=== PATIENT | male | born 1955 | race Caucasian/White ===

== ENCOUNTER 2020-01-23 22:57 | Inpatient (IN) | payer MEDICARE, BC ==
[~2020-01-23 22:57] MED LIST: Iopamidol-370 76% 500 ML 1 ML ONE
[2020-01-23 23:22] LABS: Hemoglobin 16.9 g/dL (14.0-18.0); Mean Corpuscular HGB CONC 34.7 g/dL (32.0-36.0); Mean Corpuscular Hemoglobin 32.5 pg (27.0-31.0); Mean Corpuscular Volume 93.7 fL (78.0-98.0); Platelet Count 317 thou/uL (130-400); RBC Distribution Width 11.5 % (11.5-14.5)
[2020-01-23] MEDS ORDERED: Morphine 4 MG/ML VIAL ONE (23:39)
[2020-01-23] MEDS ORDERED: Ondansetron PF 4 MG/2 ML Vial ONE (23:39)
[2020-01-23 23:41] LABS: ALT (SGPT) 48 U/L (8-55); AST (SGOT) 29 U/L (5-34); Albumin 4.9 g/dL (3.4-4.8); Alkaline Phosphatase 87 U/L (40-110); Anion Gap 13 mmol/L (10-20); BUN (Urea Nitrogen) 32 mg/dL (8.4-25.7); Bilirubin, Total 0.6 mg/dL (0.2-1.2); Calc. Creatinine Clearance 0 mL/min (70-130); Calcium 10.2 mg/dL (7.8-10.44); Carbon Dioxide 29 mmol/L (23-31); Chloride 98 mmol/L (98-107); Estimated GFR-MDRD 59; Globulin 2.8 g/dL (2.4-3.5); Glucose 256 mg/dL (80-115); Lipase 13 U/L (8-78); Potassium 4.2 mmol/L (3.5-5.1); Protein, Total 7.7 g/dL (5.8-8.1); Sodium 136 mmol/L (136-145)
[2020-01-23 23:43] LABS: Band 1 % (5-11); Lymphocytes 6 % (21-51); MDiff Complete? YES; Monocytes 4 % (0-10); Neutrophil 89 % (42-75); Platelet Morphology Comment Appears Adequate; RBC Morphology Normal
[2020-01-24] MEDS ORDERED: Morphine 4 MG/ML VIAL ONE (01:20)
[2020-01-24] MEDS ORDERED: Sodium Chloride 0.9% (PF) 10 ML VIAL FS PRN (01:51)
[2020-01-24] MEDS ORDERED: Ketorolac Tromethamine 30 MG/ML VIAL IVP PRN ×3 (01:52→20:02)
[2020-01-24] MEDS ORDERED: Morphine 4 MG/ML VIAL SLOW IVP PRN ×2 (01:52→06:56)
[2020-01-24] MEDS ORDERED: Lactated Ringer's 1,000 ML IV SCH (02:00)
[2020-01-24 02:04] VITALS: BMI 32.4
[2020-01-24 02:47] LABS: Lactic Acid 1.9 mmol/L (0.5-2.2)
[2020-01-24] MEDS ORDERED: Ondansetron PF 4 MG/2 ML Vial IVP PRN (06:56)
[2020-01-24] MEDS ORDERED: hydrALAZINE 20 MG/ML VIAL SLOW IVP PRN (06:56)
[2020-01-24] MEDS ORDERED: Dextrose 5% in Water 1,000 ML IV PRN (06:56)
[2020-01-24] MEDS ORDERED: Morphine 2 MG/ML SYRINGE SLOW IVP PRN (06:56)
[2020-01-24] MEDS ORDERED: Dextrose 50% Abboject 50 ML SYRINGE SLOW IVP PRN (06:56)
--- NOTE | 2020-01-24 07:32 | CT ---
CT ABDOMEN AND PELVIS WITH CONTRAST: Date: 01/23/2020 INDICATION: Colostomy. Abdominal pain. Question bowel obstruction. There are no comparison studies. FINDINGS: Lung bases clear. Liver shows low attenuation suggesting fatty infiltration. There is an area of increased attenuation seen near the chepe hepatis which may represent focal fatty sparing. The spleen is unremarkable. Pancreas unremarkable. There is at least one peripherally calcified gallstone seen in the gallbladder lumen. The gallbladder is mildly contracted. This gallstone measures approximately 2.6 cm. No evidence of biliary duct dilatation. Adrenal glands normal. A right renal cystic lesion seen posterior medial cortex measures 3.0 cm. There is another smaller cy stic lesion inferior right kidney. No hydronephrosis. No urinary tract calculus. Urinary bladder unre markable. Patient appears to be post colectomy. There is an ileostomy in the right mid abdomen. There is associ ated parastomal hernia with mesenteric fat herniated through the anterior abdominal wall defect into the subcutaneous tissues adjacent to the ostomy. There are several dilated loops of small bowel which show fecalization indicating small bowel obstructive process in the mid abdomen. This most likely is the result of the parastomal hernia. IMPRESSION: There is evidence of a relatively high grade small bowel obstruction, probably the result of a parast omal hernia. Recommend surgical consultation. POS: [facility]
[2020-01-24] MEDS: Lactated Ringer's 1,000 ML IV SCH ×3 (08:17→22:26)
[2020-01-24] MEDS ORDERED: Enoxaparin Sodium 30 MG/0.3 ML SYRINGE SC SCH (09:00)
[2020-01-24] MEDS ORDERED: Pantoprazole 40 MG VIAL IVP SCH (09:00)
--- NOTE | 2020-01-24 09:03 | RAD ---
ABDOMEN 2 VIEWS WITH 1 VIEW CHEST: Date: 01/24/2020 HISTORY: Small bowel obstruction. COMPARISON: Radiograph from prior day. FINDINGS: Enteric tube is in place with tip at the gastric body. There continue to be dilated loops of bowel in the left upper quadrant of the abdomen. There is fecalized dilated bowel in the lower abdomen bilaterally. Large cholelithiasis. No free air under the hemidiaphragms is appreciated. IMPRESSION: Continued findings of small bowel obstruction. POS: [facility]
[2020-01-24] MEDS ORDERED: Meropenem 2 GM, Admixture Fee 1 EACH in Sodium Chloride 0.9% 100 ML IVPB SCH (09:30)
--- NOTE | 2020-01-24 10:51 | HP ---
HISTORY OF PRESENT ILLNESS: MR. Navarro is a 64-year-old male patient, single, works at [employer] in maintenance, presents to the emergency room last night with a 1-day history of ileostomy, lack of output. He complains of abdominal bloating and nausea and vomiting. Last night at 23:12, he underwent a CAT scan of the abdomen and pelvis revealing a gallstone and high-grade bowel obstruction thought to be parastomal hernia consequence. NG tube was placed, giving him some relief, although not alleviating his discomfort. Repeat abdominal x-rays obtained this morning revealed fecalization of small bowel and large gallstone and dilated loops of small bowel. The patient reports that he underwent a total abdominal colectomy for ulcerative colitis in . Since that time, he has had two operations for bowel obstruction. He has had bilateral inguinal hernia repairs. The patient reports he has had his operations at this facility, although that is not evident on current registration information. On admission, the patient's white count was 23,000, hemoglobin 16. Basic metabolic profile essentially normal except for mildly elevated BUN of 32, creatinine 1.22. Liver function tests were normal. ALLERGIES: NONE. SOCIAL HISTORY: Tobacco, none. Alcohol, none. MEDICATIONS: At home he takes 1. Lipitor 20 mg a day. 2. Amlodipine 10 mg a day. 3. Metformin 1000 mg p.o. b.i.d. 4. Glipizide 5 mg a.m. 5. Lisinopril 10 mg daily. 6. Januvia 100 mg daily. PAST SURGICAL HISTORY: As noted above, bilateral inguinal hernia repairs with mesh, colectomy for ulcerative colitis, repeat operations for bowel obstructions through a midline incision. PAST MEDICAL HISTORY: Diabetes mellitus, hypertension. REVIEW OF SYSTEMS: Ten-point noncontributory. SOCIAL HISTORY: As noted above. The patient is single. 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 FAMILY HISTORY: No significant medical problems. REVIEW OF SYSTEMS: Noncontributory. PHYSICAL EXAMINATION: VITAL SIGNS: 6 feet 1 inch, 246 pounds, 32 BMI, 98.6, 88, 160/83. HEAD, EARS, EYES, NOSE, AND THROAT: Unremarkable. LUNGS: Clear to auscultation. CARDIAC: Regular rate and rhythm. No murmur or gallop. ABDOMEN: Distended tympanitic, mildly tender. Midline incision well healed without evident incisional hernia. Ileostomy right lower quadrant with some fullness around the ostomy, but no appreciable mass. EXTREMITIES: Unremarkable. No ankle edema. NEUROLOGICAL: Intact. No lymphadenopathy neck, axilla, groins. LABORATORY DATA: As noted. ASSESSMENT/PLAN: 1. Small-bowel obstruction secondary to , possible related to a parastomal hernia, although not appreciated on exam. We will plan laparoscopy. Most likely, he will need a laparotomy. He understands risks of infection, bleeding, reoperation, and consents. 2. Diabetes mellitus. 3. Hypertension. 4. History of ulcerative colitis and total abdominal colectomy. Job ID: [id number]
[2020-01-24] MEDS: HumaLOG 300 UNITS/3 ML VIAL SC PRN (12:37)
[2020-01-24] MEDS ORDERED: Vecuronium 10 MG VIAL ONE (12:42)
[2020-01-24] MEDS ORDERED: Metoclopramide HCl 10 MG/2 ML VIAL ONE (12:42)
[2020-01-24] MEDS ORDERED: diphenhydrAMINE 50 MG/ML VIAL ONE (12:42)
[2020-01-24] MEDS ORDERED: Succinylcholine Chloride 20 MG/ML 10 ml SYRINGE FS ONE (12:42)
[2020-01-24] MEDS ORDERED: PROPOFOL 200 MG/20 ML VIAL ONE (12:42)
[2020-01-24] MEDS ORDERED: Lidocaine 1% PF 5 ML VIAL ONE (12:42)
[2020-01-24] MEDS ORDERED: Bupivacaine HCl 0.5%/Epinephrine 1:200,000/PF 30 ml Vial ONE (12:42)
[2020-01-24] MEDS ORDERED: Glycopyrrolate 0.2 MG/ML 5 ML SYRINGE ONE (12:42)
[2020-01-24] MEDS ORDERED: Rocuronium Bromide 10 MG/ML (10ML VIAL) ONE (12:42)
[2020-01-24] MEDS ORDERED: Ondansetron PF 4 MG/2 ML Vial ONE (12:42)
[2020-01-24 13:34] LABS: #Lymphocytes 0.8 thou/uL (1.20-3.40); #Monocytes 1.6 thou/uL (0.11-0.59); #Neutrophils 10.6 thou/uL (1.40-6.50); %Basophils 0.2 % (0.0-1.0); %Eosinophils 0.3 % (0.0-10.0); %Neutrophils 81.5 % (42.0-75.0); Hemoglobin 15.8 g/dL (14.0-18.0); Mean Corpuscular HGB CONC 33.6 g/dL (32.0-36.0); Mean Corpuscular Hemoglobin 31.8 pg (27.0-31.0); Mean Corpuscular Volume 94.8 fL (78.0-98.0); Platelet Count 276 thou/uL (130-400); RBC Distribution Width 11.6 % (11.5-14.5); Red Blood Cell (RBC) Count 4.97 mill/uL (4.70-6.10)
[2020-01-24 13:53] LABS: Anion Gap 13 mmol/L (10-20); BUN (Urea Nitrogen) 30 mg/dL (8.4-25.7); Calc. Creatinine Clearance 119 mL/min (70-130); Carbon Dioxide 28 mmol/L (23-31); Chloride 101 mmol/L (98-107); Estimated GFR-MDRD 78; Glucose 214 mg/dL (80-115); Potassium 4.2 mmol/L (3.5-5.1); Sodium 138 mmol/L (136-145)
[2020-01-24] MEDS ORDERED: Midazolam HCl 2 mg/2 ml Vial ONE (14:44)
[2020-01-24] MEDS ORDERED: Fentanyl 100 MCG/2 ML VIAL ONE ×3 (14:44→20:03)
[2020-01-24] MEDS ORDERED: Lidocaine 1% w/Epinephrine 1:100K 20 ML VIAL ONE (14:54)
[2020-01-24] MEDS ORDERED: Bupivacaine PF 0.5% 30 ML VIAL ONE (14:54)
--- NOTE | 2020-01-24 15:58 | EKG ---
Test Reason : PREOP Blood Pressure : / mmHG Vent. Rate : 101 BPM Atrial Rate : 101 BPM P-R Int : 136 ms QRS Dur : 082 ms QT Int : 358 ms P-R-T Axes : 065 028 040 degrees QTc Int : 464 ms Sinus tachycardia Otherwise normal ECG When compared with ECG of 21-JUN-2017 04:43, QT has shortened Confirmed by MIRIAM DENNIS, DR. Young ([id number]) on 01/24/2020 3:57:49 PM Referred By: ISAEL Confirmed By:DR. Hector PINEDA MD
[2020-01-24] MEDS ORDERED: HYDROmorphone 2 MG/ML VIAL ONE (17:44)
[2020-01-24] MEDS ORDERED: SUGAMMADEX SODIUM 500 MG/5 ML VIAL ONE (19:13)
[2020-01-24] MEDS ORDERED: Promethazine HCl 25 MG/ML VIAL IM PRN (19:37)
[2020-01-24] MEDS ORDERED: Promethazine HCl 25 MG/ML VIAL SLOW IVP PRN (19:37)
[2020-01-24] MEDS ORDERED: Ondansetron HCl/PF 4 MG/2 ML Vial IVP PRN ×2 (19:37→20:02)
[2020-01-24] MEDS ORDERED: HYDROmorphone 2 MG/ML VIAL IVPB PRN (20:02)
[2020-01-24] MEDS ORDERED: Ketorolac Tromethamine 30 MG/ML VIAL ONE (20:03)
[2020-01-24] MEDS ORDERED: hydrALAZINE 20 MG/ML VIAL ONE (20:26)
--- NOTE | 2020-01-24 20:26 | OP ---
DATE OF PROCEDURE: 01/24/2020 PREOPERATIVE DIAGNOSES: History of colectomy for ulcerative colitis with ileostomy and two prior operations for bowel obstruction, now with a small-bowel obstruction, obesity, cholelithiasis. POSTOPERATIVE DIAGNOSES: History of colectomy for ulcerative colitis with ileostomy and two prior operations for bowel obstruction, now with a small-bowel obstruction, obesity, cholelithiasis. PROCEDURES: Exploratory laparotomy, extensive adhesiolysis for 2 hours. No enterotomies. Cholecystectomy, large gallstone. ANESTHESIA: General. ESTIMATED BLOOD LOSS: 100 mL. BLOOD TRANSFUSION: None. FINDINGS: The patient was noted to have extensive adhesions to the abdominal wall interloop. Prolonged adhesiolysis was performed. Several serosal tears reinforced with silk sutures. There was a very large gallstone. A new NG tube was placed and palpated in proper position. Seprafilm was placed between the viscera and abdominal wall into the pelvis. DESCRIPTION OF PROCEDURE: The patient was taken to the operating room, where under general anesthesia, abdomen was prepared with ChloraPrep and ostomy prepared with Betadine and draped in routine fashion. OpSite was placed over the ileostomy in the right lower quadrant. Incision was made through the old scar. On entering the abdominal cavity sharply, there were extensive adhesions, easily taken down with sharp dissection, freeing the small bowel adhesions from the anterior abdominal wall. There was a markedly dilated proximal bowel and decompressed distal bowel. Proximal small bowel was thickened, hypertrophied, indicative of chronic obstruction. Once the adhesions were all taken down from the pelvis and throughout the abdominal cavity and the obstructive process resolved. Small bowel was carefully was inspected from the ligament of Treitz to the ileostomy, ran 4 times. Serosal tears were reinforced with interrupted Lembert suture of 3-0 silk. Good hemostasis was noted. Sponge and needle counts were correct. Attention was then turned to the gallbladder, where he had a large gallstone appreciated on the CAT scan. Future cholecystectomy would require open operation. Thus, cholecystectomy was undertaken. A Bookwalter retractor was used to expose the gallbladder, grasped, dissected, and the gallbladder was taken down retrograde, freeing the attachments to the liver with the cautery. Cystic artery and duct were dissected free. Critical view was obtained. Cystic artery and duct were doubly clipped and divided, and gallbladder was submitted to Pathology. Good hemostasis was obtained with cautery. Hemostasis was ensured. Abdominal cavity was irrigated. Irrigant was evacuated. Small bowel contents were reduced in the abdominal cavity. New NG tube was placed and palpated in good position. Seprafilm was placed in the pelvis and between the viscera and abdominal wall. There was a very short leaflet of the omentum superiorly. Midline fascia was closed with continuous suture of #1 PDS. Skin and subcutaneous tissues were irrigated. Skin was approximated with love. The patient tolerated the procedure well. Job ID: [id number]
[2020-01-24] MEDS ORDERED: Prevnar 13-Val Conj/PF 0.5 ML SYRINGE IM ONE (21:00)
[2020-01-24] MEDS: Enoxaparin Sodium 40 MG/0.4 ML SYRINGE SC SCH (21:35)
[2020-01-25] MEDS: HumaLOG 300 UNITS/3 ML VIAL SC PRN ×2 (00:25→05:43)
[2020-01-25] MEDS: Lactated Ringer's 1,000 ML IV SCH ×4 (00:28→14:44)
[2020-01-25] MEDS: Ketorolac Tromethamine 30 MG/ML VIAL IVP PRN ×2 (05:43→20:42)
[2020-01-25 06:43] LABS: Band 27 % (5-11); Lymphocytes 16 % (21-51); MDiff Complete? YES; Mean Corpuscular HGB CONC 33.4 g/dL (32.0-36.0); Mean Corpuscular Hemoglobin 32.1 pg (27.0-31.0); Mean Platelet Volume 7.1 fL (7.4-10.4); Monocytes 11 % (0-10); Neutrophil 46 % (42-75); Platelet Count 275 thou/uL (130-400); Platelet Morphology Comment Appears Adequate; RBC Distribution Width 11.7 % (11.5-14.5); Red Blood Cell (RBC) Count 4.98 mill/uL (4.70-6.10); White Blood Cell (WBC) Count 10.2 thou/uL (4.8-10.8)
[2020-01-25 06:49] LABS: ALT (SGPT) 56 U/L (8-55); AST (SGOT) 41 U/L (5-34); Albumin 3.8 g/dL (3.4-4.8); Alkaline Phosphatase 69 U/L (40-110); Bilirubin, Direct 0.4 mg/dL (0.1-0.3); Bilirubin, Total 0.9 mg/dL (0.2-1.2); Protein, Total 6.2 g/dL (5.8-8.1)
[2020-01-25 06:50] LABS: Anion Gap 15 mmol/L (10-20); BUN (Urea Nitrogen) 28 mg/dL (8.4-25.7); Calc. Creatinine Clearance 117 mL/min (70-130); Calcium 8.6 mg/dL (7.8-10.44); Carbon Dioxide 22 mmol/L (23-31); Chloride 104 mmol/L (98-107); Estimated GFR-MDRD 77; Glucose 224 mg/dL (80-115); Potassium 4.5 mmol/L (3.5-5.1); Sodium 136 mmol/L (136-145)
--- NOTE | 2020-01-25 12:03 | PRG ---
DATE OF SERVICE: 01/25/2020 SUBJECTIVE: Ac Navarro is doing well today. His pain is well controlled. He is walked once. NG tube is present and has put out 510 mL postoperatively. Urine output is good. Hemoglobin 16 and white count 10. Basic metabolic profile normal. Accu-Cheks are 224 to 238. OBJECTIVE: LUNGS: Clear to auscultation. CARDIAC: Regular rate and rhythm without murmur or gallop. ABDOMEN: Soft. Minimal bowel sounds. Slightly distended and tympanitic. There is stool in his ostomy bag. EXTREMITIES: Unremarkable. ASSESSMENT AND PLAN: The patient is doing well. Continue Nation catheter today. NG tube. Sips and chips only. I encourage ambulation and up in a chair. He is up in a chair today as I had seen him. Would remove his Nation catheter tomorrow and his abdominal dressings and continue his NG tube pending day-to-day assessment and clinical progress. Job ID: [id number]
[2020-01-25] MEDS ORDERED: Cepastat Lozenges 1 LOZ PO PRN (14:00)
[2020-01-25] MEDS: Enoxaparin Sodium 40 MG/0.4 ML SYRINGE SC SCH (20:35)
[2020-01-26] MEDS: Lactated Ringer's 1,000 ML IV SCH ×3 (03:25→20:37)
--- NOTE | 2020-01-26 15:35 | PRG ---
DATE OF SERVICE: 01/26/2020 SUBJECTIVE: Ac Navarro is doing well today. He is 2 days status post more than 2-hour adhesiolysis for bowel obstruction. His ileostomy has some output. His NG tube is 500 mL in the last 24 hours, although the nurse tells me that . His abdomen is still distended and tympanitic. OBJECTIVE: LUNGS: Clear to auscultation. CARDIAC: Regular rate and rhythm without murmur or gallop. ABDOMEN: Soft, distended, tympanitic. Occasional bowel sounds. Ileostomy healthy. ASSESSMENT AND PLAN: Postoperative ileus as expected after such a long prolonged adhesiolysis. No labs today as they were normal yesterday. Accu-Cheks are 150 to 160. Overall, the patient is doing well. I have encouraged the activity level. We will continue NG tube for now, hopefully tomorrow we can remove it. We will see how his GI function looks and wait for his abdomen to diminish in size. Job ID: [id number]
[2020-01-26] MEDS ORDERED: Chloraseptic Spray 180 ml Bottle PO PRN (18:29)
[2020-01-26] MEDS: Enoxaparin Sodium 40 MG/0.4 ML SYRINGE SC SCH (20:38)
[2020-01-27] MEDS: Lactated Ringer's 1,000 ML IV SCH ×3 (05:25→20:04)
--- NOTE | 2020-01-27 16:24 | PRG ---
DATE OF SERVICE: 01/27/2020 SUBJECTIVE: Ac Navarro is doing well today. He has put out stool out of his ileostomy. OBJECTIVE: VITAL SIGNS: Temperature 98.9 degrees, respiratory rate 18, heart rate 98, and blood pressure 153/92. He is urinating. Urine output is good. Ileostomy output NG tube, he has had 1025 up until 7 this morning, he has only had 300 out today. His nurse states he is not taking as much fluids orally as he was yesterday. LUNGS: Clear to auscultation. No wheezing. CARDIAC: Regular rate and rhythm without murmur or gallop. ABDOMEN: Soft. Diminished bowel sounds were present. Ileostomy site looks good. JA suction dressing over wound. Abdomen is slightly distended, tympanitic, but nontender. ASSESSMENT AND PLAN: 1025 NG tube output, although diminished today. We will clamp his NG tube for trial to see how he does. He is having ileostomy output. Can use sips and chips for now. Report NG tube residual at 9 o'clock tonight and call me. Job ID: [id number]
[2020-01-27] MEDS: Enoxaparin Sodium 40 MG/0.4 ML SYRINGE SC SCH (20:04)
[2020-01-28] MEDS: HumaLOG 300 UNITS/3 ML VIAL SC PRN (06:12)
[2020-01-28] MEDS: Lactated Ringer's 1,000 ML IV SCH ×3 (06:13→12:29)
--- NOTE | 2020-01-28 11:27 | PRG ---
DATE OF SERVICE: 01/28/2020 SUBJECTIVE: Ac Navarro is doing well today. We checked his NG tube residual last night after 7 hours of clamp and it was 300 mL, it was left in place. This morning, he has had a total of 24 hours, 800 mL. He reports his abdomen is not as bloated. He has passed a small amount of flatus. He has not had a bowel movement. OBJECTIVE: LUNGS: Clear to auscultation. CARDIAC: Regular rate and rhythm without murmur or gallop. ABDOMEN: Soft, non-tympanitic, less distended. There is some stool in the ileostomy bag. EXTREMITIES: Unremarkable. ASSESSMENT AND PLAN: Ileus as expected after prolonged adhesiolysis. He is postoperative day #4 prolonged adhesiolysis and cholecystectomy. Remove his NG tube. Continue sips and chips for now. Await better GI function. Job ID: [id number]
[2020-01-28] MEDS: Enoxaparin Sodium 40 MG/0.4 ML SYRINGE SC SCH (20:14)
[2020-01-29] MEDS: Lactated Ringer's 1,000 ML IV SCH (01:09)
[2020-01-29 04:55] LABS: #Eosinphils 0.4 thou/uL (0.0-0.7); #Lymphocytes 1.4 thou/uL (1.20-3.40); #Monocytes 1.2 thou/uL (0.11-0.59); #Neutrophils 6.7 thou/uL (1.40-6.50); %Basophils 0.2 % (0.0-1.0); %Eosinophils 4.1 % (0.0-10.0); %Lymphocytes 14.5 % (21.0-51.0); %Monocytes 12.5 % (0.0-10.0); %Neutrophils 68.8 % (42.0-75.0); Hemoglobin 15.1 g/dL (14.0-18.0); Mean Corpuscular HGB CONC 32.8 g/dL (32.0-36.0); Mean Corpuscular Volume 94.3 fL (78.0-98.0); Mean Platelet Volume 6.8 fL (7.4-10.4); Platelet Count 281 thou/uL (130-400); RBC Distribution Width 11.1 % (11.5-14.5); Red Blood Cell (RBC) Count 4.88 mill/uL (4.70-6.10); White Blood Cell (WBC) Count 9.7 thou/uL (4.8-10.8)
[2020-01-29 05:19] LABS: Anion Gap 15 mmol/L (10-20); BUN (Urea Nitrogen) 14 mg/dL (8.4-25.7); Calc. Creatinine Clearance 174 mL/min (70-130); Calcium 8.4 mg/dL (7.8-10.44); Carbon Dioxide 24 mmol/L (23-31); Chloride 101 mmol/L (98-107); Estimated GFR-MDRD Greater than 90; Glucose 136 mg/dL (80-115); Magnesium 1.9 mg/dL (1.6-2.6); Potassium 3.5 mmol/L (3.5-5.1); Sodium 136 mmol/L (136-145)
[2020-01-29] MEDS ORDERED: Lactated Ringer's 1,000 ML IV SCH (11:59)
--- NOTE | 2020-01-29 12:04 | PRG ---
DATE OF SERVICE: 01/29/2020 SUBJECTIVE: Mr. Navarro is doing well today. He tolerated his NG tube out last night. He is thirsty. He reports passing some flatus and having a bowel movement. OBJECTIVE: VITAL SIGNS: Temperature 98.7 degrees, heart rate 92, and blood pressure 135/75. LUNGS: Clear to auscultation. CARDIAC: Regular rate and rhythm without murmur or gallop. ABDOMEN: Soft. Occasional bowel sounds. Less tympany than yesterday, although mildly tympanitic. Abdominal wound looks good. EXTREMITIES: Unremarkable. LABORATORY DATA: White count 9 and hemoglobin 15.1. Basic metabolic profile is unremarkable. Potassium 3.5 and magnesium 1.9. ASSESSMENT AND PLAN: Doing well after extensive adhesiolysis, postoperative day #5. We will advance to clear liquids, ask him to avoid carbonated beverages and to consume liquids slowly and increase ambulation. Job ID: [id number]
[2020-01-29] MEDS: Enoxaparin Sodium 40 MG/0.4 ML SYRINGE SC SCH (20:05)
[2020-01-30] MEDS: HumaLOG 300 UNITS/3 ML VIAL SC PRN ×2 (05:58→12:12)
[2020-01-30] MEDS ORDERED: Lisinopril 10 MG TAB PO SCH (09:00)
[2020-01-30] MEDS ORDERED: Amlodipine 10 MG TAB PO SCH (09:00)
[2020-01-30] MEDS ORDERED: Acetaminophen 500 MG TAB PO PRN (10:14)
[2020-01-30] MEDS ORDERED: Ibuprofen 600 MG TAB PO PRN (10:14)
--- NOTE | 2020-01-30 10:21 | PRG ---
DATE OF SERVICE: 01/30/2020 SUBJECTIVE: Ac Navarro is doing well today. He is tolerating his diet. He has had a bowel movement. He wants to go home. OBJECTIVE: VITAL SIGNS: Temperature 98.5 degrees, heart rate 92, and blood pressure 143/78. LUNGS: Clear to auscultation. CARDIAC: Regular rate and rhythm without murmur or gallop. ABDOMEN: Soft and nontender. EXTREMITIES: Wound looks good. ASSESSMENT AND PLAN: The patient is postoperative day #6. We will give wound supplies to his niece, Margaret, to remove his love, place Mastisol and Steri-Strips next week. He will see me in office in 2 to 3 weeks. No lifting over 25 pounds. He can shower and bathe with an open wound. Job ID: [id number]
--- NOTE | 2020-01-30 10:39 | DIS ---
DATE OF ADMISSION: 01/24/2020 DATE OF DISCHARGE: 01/30/2020 DISCHARGE DIAGNOSES: Small bowel obstruction secondary to adhesions from prior surgery. Ileostomy status after total abdominal colectomy. Ulcerative colitis. DISCHARGE MEDICATIONS: For pain, Tylenol and Advil [id number]. Resume home medications: 1. a. Lipitor. b. Amlodipine. c. Metformin. d. Glipizide. e. Lisinopril. f. Januvia. ACTIVITY: No lifting over 25 pounds for 6 weeks. He can shower and bathe. He can drive. He can wash his wound with soap and water in the shower. DIET: Regular diet. HOSPITAL COURSE: A 64-year-old male, presenting with bowel obstruction confirmed by CAT scan with distention, tympany, and obstipation, no ileostomy output for several days, taken to the operating room after a period of hydration undergoing a 3-hour adhesiolysis, postoperatively convalesced, tolerated his diet with above discharge instructions. Job ID: [id number]
[2020-01-30 11:18] VITALS: BP 121/72; TEMP 99.3
[2020-01-30] MEDS ORDERED: metFORMIN 500 MG TAB PO SCH (17:00)
[2020-01-30] MEDS ORDERED: Atorvastatin Calcium 20 MG TAB PO SCH (21:00)
[2020-01-31] MEDS ORDERED: Alogliptin 25 MG TAB PO SCH (09:00)
--- NOTE | 2020-01-31 14:34 | PQF ---
SHERLEY PARISI RICHARD D MD [id number] SURG B- [id number] CLINICAL DOCUMENTATION CLARIFICATION FORM: POST DISCHARGE Addendum to original discharge summary date: ____ Late entry note date: __ DATE: 01/31/2020 ATTN:YULIA KIRKLAND MD Please exercise your independent, professional judgment in responding to the clarification form. 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 metastasis to the axillary lymph nodes, primary prostate carcinoma, etc.), is this a confirmed diagnosis for this patient? [ ] Yes, this is a secondary diagnosis for this patient [no ] Other (additional comments): [ ] Unable to determine For continuity of documentation, please document condition throughout progress notes and discharge summary. Thank You. CLINICAL INDICATORS - SIGNS/ SYMPTOMS / LABS / RESULTS AND LOCATION IN MR Chronic lymphoeosinophilic cholecystitis, Cholelithiasis -Documented in pathology report History of colectomy for ulcerative colitis with ileostomy and two prior operations for bowel obstruction , now with a small-bowel obstruction , cholelithiasis -documented in OP note on 01/23 by Norm Burrell MD RISK FACTORS / RESULTS AND LOCATION IN MR Cholelithiasis -Documented in OP note on 01/23 by Norm Burrell MD TREATMENTS / RESULTS AND LOCATION IN MR Exploratory laparotomy, extensive adhesiolysis for 2 hours , Cholecystectomy large gallstone -Documented in OP note on 01/23 by Norm Burrell MD [employer] Winform Viewer (This form is maintained as a part of the permanent medical record) 2014 [id number], [employer]. All Rights Reserved Cole [email or web address] [phone] MTDD
== END 2020-01-30 12:56 | disposition home or self-care (01) | DRG 336 ==
LOC: ERS 22:57 → SURG B 01-24 00:38
PROVIDERS: ADMIT Specialist; ATTEND Specialist
PROC: 0DN80ZZ Release Small Intestine, Open Approach (ICD-10-PCS; principal; 2020-01-24)
PROC: 0FT40ZZ Resection of Gallbladder, Open Approach (ICD-10-PCS; 2020-01-24)
DX: K91.30 Postprocedural intestinal obstruction, unspecified as to partial versus complete (principal); K51.90 Ulcerative colitis, unspecified, without complications; K80.10 Calculus of gallbladder with chronic cholecystitis without obstruction; Y83.8 Other surgical procedures as the cause of abnormal reaction of the patient, or of later complication, without mention of misadventure at the time of the procedure; K56.7 Ileus, unspecified; E66.9 Obesity, unspecified; Z68.32 Body mass index [BMI] 32.0-32.9, adult; I10 Essential (primary) hypertension; E11.9 Type 2 diabetes mellitus without complications; Z90.49 Acquired absence of other specified parts of digestive tract; Z93.2 Ileostomy status
CPT/HCPCS: 20610; 36415; 36416; 74022; 74177; 80048; 80053; 80076; 83605; 83690; 83735; 85025; 88304; 93005; 93010; 96361; 96374; 96375; 96376; 99213; C9113; G0463; J0360; J0670; J1040; J1170; J1200; J1650; J1885; J2001; J2250; J2270; J2405; J2704; J2765; J3010; Q9967; S0020

== ENCOUNTER 2020-02-04 14:10 | Inpatient (IN) | payer MEDICARE, BC ==
[~2020-02-04 14:10] MED LIST changes: +Calcium Chloride 1 GM/10 ML Abboject SYRINGE ONE; +EPHEDRINE 25 MG/5 ML SYRINGE ONE; +Glycopyrrolate 0.2 MG/ML 5 ML SYRINGE ONE; +Lidocaine 1% PF 5 ML VIAL ONE; +Ondansetron PF 4 MG/2 ML Vial ONE; +PHENYLEPHRINE-NS 100 MCG/ML 10 ML SYRINGE ONE; +PROPOFOL 200 MG/20 ML VIAL ONE; +Rocuronium Bromide 10 MG/ML (10ML VIAL) ONE; +Succinylcholine Chloride 20 MG/ML 10 ml SYRINGE FS ONE
[2020-02-04] MEDS ORDERED: Piperacillin/Tazobactam 4.5 GM VIAL ONE (14:24)
[2020-02-04] MEDS ORDERED: Sodium Chloride 0.9% 100 ML ONE (14:24)
--- NOTE | 2020-02-04 14:29 | RAD ---
AP CHEST: Date: 02/04/2020 HISTORY: Shortness of breath. COMPARISON: 06/21/2017. FINDINGS: No definite infiltrate. Left lung base is poorly evaluated but has a similar appearance to the prior study of 2017. Upper lung walter are clear. Heart and mediastinum unremarkable and stable. Vascular m arkings are upper normal and stable. IMPRESSION: No definite infiltrate. Left lung base is poorly evaluated and if there is concern of pneumonia, shona mmend upright PA and lateral views of chest for better evaluation. POS: [facility]
[2020-02-04 14:42] LABS: Hemoglobin 15.3 g/dL (14.0-18.0); Mean Corpuscular HGB CONC 33.5 g/dL (32.0-36.0); Mean Corpuscular Hemoglobin 31.5 pg (27.0-31.0); Mean Corpuscular Volume 93.8 fL (78.0-98.0); Mean Platelet Volume 6.5 fL (7.4-10.4); Platelet Count 470 thou/uL (130-400); RBC Distribution Width 11.2 % (11.5-14.5); Red Blood Cell (RBC) Count 4.86 mill/uL (4.70-6.10)
[2020-02-04] MEDS ORDERED: Morphine 4 MG/ML VIAL ONE (14:54)
[2020-02-04] MEDS ORDERED: Vancomycin 1 GM/200 ML BAG ONE (14:54)
[2020-02-04] MEDS ORDERED: Ondansetron PF 4 MG/2 ML Vial ONE (14:54)
[2020-02-04 15:02] LABS: ALT (SGPT) 24 U/L (8-55); AST (SGOT) 18 U/L (5-34); Albumin 3.5 g/dL (3.4-4.8); Alkaline Phosphatase 101 U/L (40-110); Anion Gap 13 mmol/L (10-20); BUN (Urea Nitrogen) 16 mg/dL (8.4-25.7); Bilirubin, Total 0.9 mg/dL (0.2-1.2); Calc. Creatinine Clearance 0 mL/min (70-130); Calcium 9.2 mg/dL (7.8-10.44); Carbon Dioxide 26 mmol/L (23-31); Chloride 97 mmol/L (98-107); Estimated GFR-MDRD 74; Globulin 2.9 g/dL (2.4-3.5); Glucose 174 mg/dL (80-115); Lipase 6 U/L (8-78); Potassium 4.7 mmol/L (3.5-5.1); Protein, Total 6.4 g/dL (5.8-8.1); Sodium 131 mmol/L (136-145)
[2020-02-04 15:03] LABS: Band 53 % (5-11); MDiff Complete? YES; Monocytes 1 % (0-10); Neutrophil 42 % (42-75); Platelet Morphology Comment Appears Increased; Polychromasia SLIGHT = 2-3 cells (100X) (0-2/hpf); Reactive Lymphocytes 4 % (0-10)
[2020-02-04] MEDS ORDERED: Oxymetazoline HCl 0.05% (30 ML BOT) ONE (15:13)
[2020-02-04] MEDS ORDERED: Benzocaine 20% Spray 60 ML CAN ONE (15:13)
--- NOTE | 2020-02-04 15:24 | CT ---
CT ABDOMEN AND PELVIS WITH IV COTNRAST: INDICATION: Abdominal pain. Post colon surgery for blockage. COMPARISON: Correlate is made to the recent CT abdomen and pelvis of 01/23/2020 which showed evidence of small bow el obstruction. FINDINGS: Lung bases clear. Liver, spleen, pancreas, and kidneys unremarkable. Stomach shows mild distention with ingested fluid material with air fluid level. There are dilated loops of proximal small bowel with surrounding inflammatory change and free fluid. Free fluid is seen in the upper abdomen and extends down the colonic gutters into the pelvis. There is an ostomy on the right with evidence of colon resection. There is a parastomal hernia which was described previously with mesenteric fat. There appears to be a small loop of small bowel herni ated into this defect. There is also a right inguinal canal hernia with small bowel loop herniated into this defect. There is surrounding inflammation and fluid within this hernia. There are 2 gas pockets within this right inguinal canal. These may reside within bowel loops, although I cannot exclude the possibility of ex traluminal gas within this inguinal hernia. IMPRESSION: There is a relatively high-grade small bowel obstruction. There are 2 hernias identified, both of wh ich may be contributing to the bowel obstruction. There is a parastomal hernia along the anterior wa ll of the right lower abdomen with a tiny loop of small bowel herniated through this defect. There i s also a right inguinal hernia with bowel and fluid herniated into this defect. There is fluid withi n this inguinal canal and a gas pocket which may be extraluminal. Inflammatory change surrounds the dilated small bowel loops with free fluid as described above. Findings discussed with Dr. Marquez. CODE CR
[2020-02-04] MEDS ORDERED: Lidocaine 1% w/Epinephrine 1:100K 20 ML VIAL ONE (16:21)
[2020-02-04] MEDS ORDERED: Bupivacaine PF 0.5% 30 ML VIAL ONE (16:21)
[2020-02-04] MEDS ORDERED: Midazolam HCl 2 mg/2 ml Vial ONE (16:33)
[2020-02-04] MEDS ORDERED: Fentanyl 100 MCG/2 ML VIAL ONE (16:33)
[2020-02-04] MEDS ORDERED: Sodium Chloride 0.9% 20 ML ONE (16:37)
--- NOTE | 2020-02-04 17:03 | HP ---
HISTORY OF PRESENT ILLNESS: Ac Navarro is a 64-year-old male patient has had a total abdominal colectomy and a permanent ileostomy. He has had multiple operations for bowel obstructions in the past. He has had a left inguinal hernia repair in the past. The patient was recently hospitalized 01/24/2020 to 01/30/2020, undergoing on 01/24/2020 2.5 to 3-hour laparotomy adhesiolysis for a bowel obstruction with incidental cholecystectomy due to appreciated gallstones. CAT scan, 01/23/2020, just prior to that operation revealed fatty liver, cholelithiasis, parastomal hernia with mesenteric fat, dilated loops of small bowel with fecalization with high-grade bowel obstruction. The patient underwent the above-mentioned surgery and convalesced and had good ileostomy function. He has been doing well at home until 2 in the morning, yesterday, Monday, when he began having lower abdominal discomfort, left lower quadrant worse than right lower quadrant. He continued to have ileostomy output, in fact, has emptied it twice earlier today. He called my office complaining of pain. He had been sent home taking just Tylenol, ibuprofen. The patient presented to the emergency room, noted to have a temperature of 100.4 degrees, tachycardia, white count of 37,000 with 53% bands and normal basic metabolic profile with a lactate of 1.9, normal. He underwent a CAT scan of the abdomen and pelvis that was read out as an incarcerated right inguinal hernia, parastomal hernia, some fluid in the gutters. I arrived to see him in the emergency room. He is fairly comfortable. He states he does not have any abdominal pain, except for mild in his left lower quadrant or right lower quadrant at times. His abdomen is slightly distended. CAT scan did reveal a markedly distended stomach with fluid. Multiple attempts to place an NG tube were unsuccessful. He did have distended loops of distal small bowel with fecalization noted on the CAT scan read by Dr. Parrish. On exam, the patient has had a right groin mass that I could not reduce and was exquisitely tender. On CAT scan, there was fluid in this groin mass and Dr. Parrish read this out as incarcerated hernia, but I reviewed the scan with Dr. James Rivas, and looking at the coronal cuts, it did not look like there was bowel in this inguinal hernia. It was not responsible for the distended small bowel loops or stomach. The parastomal hernia is not incarcerated and does not look responsible for the fecalization of the distal small bowel and distended stomach. The patient states his abdomen is normal size and does not feel distended. He is obese, but with a protuberant abdomen and it is difficult to tell by exam. As noted above, I reviewed the CAT scan with Dr. Rivas. There is gas and fluid density in the right scrotum and inguinal canal, but there does not appear to be any bowel on reviewing the CAT scan looking at the coronal cuts. ALLERGIES: NONE. TOBACCO: None. MEDICATIONS: 1. Januvia. 2. Glucophage. 3. Glucotrol. 4. Lisinopril. 5. Motrin. 6. Lipitor. 7. Amlodipine. 8. Acetaminophen. PAST MEDICAL HISTORY: Diabetes mellitus; hypertension; morbid obesity; metabolic syndrome; history of ulcerative colitis, status post total abdominal colectomy and ileostomy. PAST SURGICAL HISTORY: Left inguinal hernia repair with mesh, colectomy for ulcerative colitis with permanent ileostomy, repeat operation for bowel obstruction through a midline incision. In 1993, he had his total abdominal colectomy. He has had 2 operations for bowel obstruction since that time. He has had a left inguinal hernia repair with mesh in the past. He has never had a right inguinal hernia repair. The patient was discharged from this facility with a normal white count and hemoglobin of 15.1. PHYSICAL EXAMINATION: VITAL SIGNS: Heart rate 115. GENERAL: The patient is no distress. LUNGS: Clear to auscultation. He denies having any cough or congestion. CARDIAC: Sinus tachycardia. ABDOMEN: Protuberant. Soft. Bowel sounds present. There is some gas in the ileostomy bag. He has variable tenderness in the left lower quadrant. : Right testicle is normal. Right groin with a tender mass that I cannot reduce. He moves my hand away with every effort to reduce it. ASSESSMENT/PLAN: 1. Right groin mass with fluid level and tender. I have reviewed this with Dr. Rivas, and it does not look like this is bowel in the hernia sac. We would recommend exploration and repair of his hernia tonight. We would place an NG tube in the operating room and try to avoid laparotomy in this patient, who is 11 days postoperative from extensive adhesiolysis and laparotomy. Radiologically, there is nothing in the abdominal cavity. It looks worrisome for any postoperative complication. Exam is fairly benign. I am concerned about his leukocytosis with a left shift and low-grade fever and tachycardia, which maybe related to the right groin mass. 2. Diabetes mellitus. 3. Hypertension. 4. Metabolic syndrome. Job ID: [id number]
[2020-02-04] MEDS ORDERED: PHENYLEPHRINE-NS 100 MCG/ML 10 ML SYRINGE ONE (17:34)
[2020-02-04] MEDS ORDERED: SUGAMMADEX SODIUM 500 MG/5 ML VIAL ONE (18:37)
[2020-02-04] MEDS ORDERED: hydrALAZINE 20 MG/ML VIAL SLOW IVP PRN (18:51)
[2020-02-04] MEDS ORDERED: Morphine 2 MG/ML SYRINGE SLOW IVP PRN (18:51)
[2020-02-04] MEDS ORDERED: Ondansetron PF 4 MG/2 ML Vial IVP PRN (18:51)
[2020-02-04] MEDS ORDERED: Dextrose 5% in Water 1,000 ML IV PRN (18:51)
[2020-02-04] MEDS ORDERED: Dextrose 50% Abboject 50 ML SYRINGE SLOW IVP PRN (18:51)
[2020-02-04] MEDS ORDERED: Ketorolac Tromethamine 30 MG/ML VIAL IVP PRN (18:54)
[2020-02-04] MEDS ORDERED: Acetaminophen 500 MG TAB PO PRN (18:54)
[2020-02-04] MEDS ORDERED: Acetaminophen 650 MG Suppository PR PRN (18:54)
--- NOTE | 2020-02-04 19:14 | RAD ---
Radiograph abdomen one view: DATE: 02/04/2020 Time: 6:32 PM HISTORY: Status post NG tube placement FINDINGS: [id number] limited to upper half of abdomen. Esophagogastric tube courses through fundus, with dis rajinder tip slightly to the left of midline within an air-filled gastric body. IMPRESSION: Esophagogastric tube placement into the mid corpus of the stomach.
--- NOTE | 2020-02-04 19:24 | RAD ---
RADIOGRAPH CHEST 1 VIEW: DATE: 02/04/2020 TIME: 6:31 PM HISTORY: 64-year-old male status post central line placement and NG tube placement COMPARISON: 02/04/2020 2:18 PM FINDINGS: New right subclavian central line with distal tip overlying expected region of SVC/right atrial junct ion. New tube coursing through expected path of esophagus and overlying gastric bubble in left upper quadr ant, distal tip outside of field of view. (Abdomen radiograph obtained near same time shows distal tip at mid gastric body). New finding of shaggy right mediastinal border, and new finding of widening of the mediastinum. No pneumothorax or consolidation identified. IMPRESSION: 1. Right subclavian central venous catheter placement without pneumothorax. 2. Esophagogastric tube placement into the stomach. 3. New findings of widening of mediastinum and shaggy right mediastinal border.
--- NOTE | 2020-02-04 20:07 | OP ---
DATE OF PROCEDURE: 02/04/2020 PREOPERATIVE DIAGNOSES: 1. Incarcerated right inguinal hernia with CAT scan demonstrating that there is air fluid in the herniated and incarcerated mass without bowel, elevated leukocytosis, low-grade fever. 2. Nonobstructive parastomal hernia, chronic. 3. 10 days status post prolonged adhesiolysis for bowel obstruction. 4. Prior history of colectomy with permanent ileostomy for ulcerative colitis. 5. Poor IV access. POSTOPERATIVE DIAGNOSES: 1. Incarcerated right inguinal hernia with CAT scan demonstrating that there is air fluid in the herniated and incarcerated mass without bowel, elevated leukocytosis, low-grade fever. 2. Nonobstructive parastomal hernia, chronic. 3. 10 days status post prolonged adhesiolysis for bowel obstruction. 4. Prior history of colectomy with permanent ileostomy for ulcerative colitis. 5. Poor IV access. PROCEDURES PERFORMED: 1. Incarcerated right inguinal hernia repair without mesh, Bassini type repair without mesh. 2. Right subclavian vein central line. FINDINGS: The patient had incarcerated omentum, fatty tissue with hernia sac containing a fibrinopurulent exudate without gloria pus. ANESTHESIA: General, local 0.5% Marcaine 30 mL, 1% Xylocaine with epinephrine 20 mL, total volume used. INDICATIONS FOR PROCEDURE: The patient is 10 days status post 2.5 hour adhesiolysis for a bowel obstruction without enterotomy. He went home about 6 days postoperatively. He was doing well until the last day when he experienced lower abdominal pain, intolerable, presented to the emergency room, had a leukocytosis with left shift, 100.4 degree fever. No history of cough or dyspnea. Postoperative changes noted on CAT scan and abdominal cavity. DESCRIPTION OF PROCEDURE: The patient was taken to the operating room, where under general anesthesia, abdomen and right groin were prepared with ChloraPrep and draped in routine fashion. Local anesthetic was infiltrated in the skin and subcutaneous tissue about the OpSite. Incision was made in right groin and carried down through skin and subcutaneous tissue. External oblique, I did find the cord structures dissecting all free. There was an incarcerated direct hernia into the groin. This was dissected free. His fatty tissue excised with the cautery. Within this incarcerated fatty tissue was a hernia sac appearing material with some fibrinous inflammatory changes. No gloria pus was seen. Wound irrigated. Hemostasis obtained. For the canal repaired by transposing the transversalis fascia to the external oblique, we were using interrupted sutures of 0 Nurolon. External oblique approximated with 0 Nurolon obliterating the space. Wound irrigated. Subcutaneous tissue was approximated with 3-0 Monocryl, skin with subdermal 4-0 Monocryl, and [place] glue applied. Right paraclavicular area was clipped of hair, prepared with ChloraPrep and draped in routine fashion. Trocar catheter was cannulated with the right subclavian vein in infraclavicular approach. J-wire threaded, trocar catheter removed. Skin site enlarged sharply. Seldinger technique used to place triple-lumen catheter, removing the J-wire, securing the catheter, and sutured with 3-0 silk. Sterile dressing applied. Each port aspirated with blood and flushed with saline solution. The patient tolerated the procedure well. Job ID: [id number]
[2020-02-04] MEDS: Piperacillin/Tazobactam 4.5 GM in Sodium Chloride 0.9% 100 ML IVPB SCH (21:05)
[2020-02-04] MEDS: Sodium Chloride 0.9% 1,000 ML IV SCH (21:05)
[2020-02-04] MEDS: Enoxaparin Sodium 40 MG/0.4 ML SYRINGE SC SCH (21:05)
[2020-02-05] MEDS: HumaLOG 300 UNITS/3 ML VIAL SC PRN (00:19)
[2020-02-05 02:20] VITALS: BMI 30.2
[2020-02-05] MEDS: Piperacillin/Tazobactam 4.5 GM in Sodium Chloride 0.9% 100 ML IVPB SCH ×4 (03:34→20:45)
[2020-02-05] MEDS: Sodium Chloride 0.9% 1,000 ML IV SCH ×3 (03:35→18:20)
[2020-02-05 05:34] LABS: ALT (SGPT) 31 U/L (8-55); AST (SGOT) 21 U/L (5-34); Albumin 3.1 g/dL (3.4-4.8); Alkaline Phosphatase 104 U/L (40-110); Anion Gap 12 mmol/L (10-20); BUN (Urea Nitrogen) 16 mg/dL (8.4-25.7); Bilirubin, Total 1.1 mg/dL (0.2-1.2); Calc. Creatinine Clearance 106 mL/min (70-130); Calcium 8.5 mg/dL (7.8-10.44); Carbon Dioxide 24 mmol/L (23-31); Chloride 102 mmol/L (98-107); Estimated GFR-MDRD 71; Globulin 2.4 g/dL (2.4-3.5); Glucose 141 mg/dL (80-115); Potassium 4.1 mmol/L (3.5-5.1); Protein, Total 5.5 g/dL (5.8-8.1); Sodium 134 mmol/L (136-145)
[2020-02-05] MEDS: Morphine 4 MG/ML VIAL SLOW IVP PRN ×4 (06:28→18:19)
[2020-02-05 06:40] LABS: Band 23 % (5-11); Hemoglobin 12.5 g/dL (14.0-18.0); Lymphocytes 3 % (21-51); MDiff Complete? YES; Mean Corpuscular HGB CONC 32.7 g/dL (32.0-36.0); Mean Corpuscular Hemoglobin 31.4 pg (27.0-31.0); Mean Corpuscular Volume 96.1 fL (78.0-98.0); Mean Platelet Volume 6.9 fL (7.4-10.4); Monocytes 2 % (0-10); Neutrophil 72 % (42-75); Platelet Count 394 thou/uL (130-400); RBC Distribution Width 11.2 % (11.5-14.5); Red Blood Cell (RBC) Count 3.99 mill/uL (4.70-6.10); White Blood Cell (WBC) Count 32.5 thou/uL (4.8-10.8)
[2020-02-05] MEDS: Pantoprazole 40 MG VIAL IVP SCH (08:19)
--- NOTE | 2020-02-05 10:38 | PRG ---
DATE OF SERVICE: 02/05/2020 SUBJECTIVE: Ac Navarro states he is doing better postoperatively. He states his abdominal pain has resolved, although when the nurses tried to get him up, he has difficulty moving because of the pain. NG tube output for 24 hours is 300 mL. There has been some flatus in his ileostomy bag. His ileostomy is healthy. There is no evident parastomal hernia. There is his ileostomy postoperatively. OBJECTIVE: LUNGS: Clear to auscultation. CARDIAC: Regular rate and rhythm. ABDOMEN: Soft, mild tenderness without peritoneal signs. Midline wound looks healthy. Surgical wound right groin looks healthy. LABORATORY DATA: White count this morning is 32,000 down from 37,000 yesterday. Band count is 23% down from 53% yesterday. Sodium 134, potassium 4.1, BUN and creatinine are normal. ASSESSMENT AND PLAN: Ileus. Continue observation, NG tube. Repeat his CAT scan tomorrow with p.o. contrast per NG tube and clamp and IV contrast. Await better GI function. At the time of his right inguinal hernia repair, he did have incarcerated fat, omentum and there was some inflammatory exudate in the sac. There was no gloria purulence. There was no drainage of contaminated fluid from the abdominal cavity. The CAT scan does not show any definitive abnormalities of the abdominal cavity, just postoperative changes, a few fluid collections here and there is expected postop. The patient's history is very difficult. The patient is morbidly obese with baseline protuberant abdomen without peritoneal signs. I am concerned about his leukocytosis, although slightly improved from yesterday but postoperative. We will recheck his CBC in the morning. Continue Zosyn, NG tube. We will make further recommendations pending CAT scan tomorrow. Clinical course today. Job ID: [id number]
[2020-02-05] MEDS: Enoxaparin Sodium 40 MG/0.4 ML SYRINGE SC SCH (20:45)
[2020-02-06] MEDS: Piperacillin/Tazobactam 4.5 GM in Sodium Chloride 0.9% 100 ML IVPB SCH ×4 (02:34→19:59)
[2020-02-06] MEDS: Sodium Chloride 0.9% 1,000 ML IV SCH ×4 (02:35→21:00)
[2020-02-06 04:24] LABS: #Eosinphils 0.2 thou/uL (0.0-0.7); #Lymphocytes 0.8 thou/uL (1.20-3.40); #Monocytes 1.1 thou/uL (0.11-0.59); #Neutrophils 22.4 thou/uL (1.40-6.50); %Basophils 0.1 % (0.0-1.0); %Eosinophils 0.8 % (0.0-10.0); %Lymphocytes 3.3 % (21.0-51.0); %Monocytes 4.5 % (0.0-10.0); %Neutrophils 91.3 % (42.0-75.0); Hemoglobin 11.7 g/dL (14.0-18.0); Mean Corpuscular HGB CONC 33.8 g/dL (32.0-36.0); Mean Corpuscular Hemoglobin 32.4 pg (27.0-31.0); Mean Platelet Volume 6.6 fL (7.4-10.4); Platelet Count 349 thou/uL (130-400); RBC Distribution Width 11.2 % (11.5-14.5); Red Blood Cell (RBC) Count 3.61 mill/uL (4.70-6.10); White Blood Cell (WBC) Count 24.6 thou/uL (4.8-10.8)
[2020-02-06 04:48] LABS: ALT (SGPT) 27 U/L (8-55); AST (SGOT) 29 U/L (5-34); Alkaline Phosphatase 93 U/L (40-110); Anion Gap 13 mmol/L (10-20); BUN (Urea Nitrogen) 14 mg/dL (8.4-25.7); Bilirubin, Total 0.7 mg/dL (0.2-1.2); Calc. Creatinine Clearance 131 mL/min (70-130); Calcium 8.2 mg/dL (7.8-10.44); Carbon Dioxide 26 mmol/L (23-31); Chloride 102 mmol/L (98-107); Estimated GFR-MDRD Greater than 90; Globulin 2.7 g/dL (2.4-3.5); Glucose 118 mg/dL (80-115); Potassium 3.6 mmol/L (3.5-5.1); Protein, Total 5.7 g/dL (5.8-8.1); Sodium 137 mmol/L (136-145)
[2020-02-06] MEDS: Pantoprazole 40 MG VIAL IVP SCH (08:47)
[2020-02-06] MEDS ORDERED: Iopamidol-370 76% 500 ML 1 ML ONE (10:30)
[2020-02-06] MEDS ORDERED: Iopamidol 370 76% 50 ML VIAL FS ONE (10:30)
--- NOTE | 2020-02-06 11:25 | CT ---
EXAM: CT Abdomen Pelvis W Con PROVIDED CLINICAL HISTORY: Abdominal pain COMPARISON: 02/04/2020 FINDINGS: Trace right pleural fluid and bibasilar subsegmental atelectatic change. Enteric catheter is noted wi th tip in the region of the gastric antrum. The liver, spleen, pancreas, kidneys and adrenal glands demonstrate a stable CT appearance. Changes o f prior cholecystectomy with simple appearing fluid collection within the gallbladder fossa, stable. There is an extraluminal fluid and gas collection within the anterior abdomen commencing just inferio r to the umbilicus. This immediately underlies the anterior abdominal wall and insinuates about multiple loops of small bowel at its posterior and lateral margins. This measures about 7.4 cm in AP dimension by about 11 cm in transverse dimension. No evidence for extraluminal oral contrast material. Minimal noncircumscribed fluid density is seen subjacent to the cranial aspects of the midl ine laparotomy changes. There is persistent noncircumscribed fluid density and interspersed gas within the right inguinal can al. There is no evidence for bowel within the right inguinal canal. Subcutaneous gas is also seen in this region, new with respect to prior. The colon is again not visualized with changes of right lower quadrant end ileostomy again noted. The re is herniation of peritoneal fat into the stomal defect, without evidence for bowel herniation. There is mildly ectatic small bowel without evidence for small bowel obstruction. Numerous loops of s mall bowel demonstrate conspicuous mural thickening about the described abdominal fluid and gas collection. Small fat-containing left inguinal hernia. Mild free fluid present within the right parac olic gutter inferiorly and pelvis. Vascular calcifications are noted. The osseous structures demonstrate no concerning lytic or blastic lesions. IMPRESSION: 1. Abdominal fluid and gas collection as described above, suspicious for developing abscess. 2. Numerous loops of small bowel demonstrate mural thickening in this region, which could be on the b asis of reactive change. This could also reflect enteritis related to the patient's provided history of inflammatory bowel disease. 3. No evidence for small bowel obstruction or bowel-containing hernia. Fluid and gas density within t he right inguinal canal could reflect extension of presumed abdominal infectious process.
[2020-02-06 13:08] LABS: INR-International Normal Ratio 1.3; PTT 32.3 SEC (22.9-36.1); Prothrombin Time 15.8 SEC (12.0-14.7)
[2020-02-06] MEDS ORDERED: Fentanyl 100 MCG/2 ML VIAL ONE (13:10)
[2020-02-06] MEDS ORDERED: Midazolam HCl 2 mg/2 ml Vial ONE (13:10)
[2020-02-06] MEDS ORDERED: Sodium Bicarbonate 2.5 MEQ/5 ML VIAL ONE (13:10)
--- NOTE | 2020-02-06 13:45 | PRG ---
DATE OF SERVICE: 02/06/2020 SUBJECTIVE: Ac Navarro today is feeling somewhat better. He is still taking analgesics parental periodically. He feels better. OBJECTIVE: VITAL SIGNS: He has been afebrile. Heart rate is 90 to 105. Blood pressure is stable. NG tube output in the last 24 hours, 1450. Urine output 625. LUNGS: Clear to auscultation. CARDIAC: Regular rate and rhythm. No murmur or gallop. ABDOMEN: Soft, obese. Tender central abdomen. Ileostomy output. LABORATORY DATA: White count has fallen from 37,000 on admission to 32,000 yesterday and 24,000 today. Left shift has resolved. Accu-Cheks are 130 to 140. Basic metabolic profile normal. IMAGING STUDIES: CAT scan of the abdomen and pelvis obtained this morning reveals a fluid collection beneath his anterior abdominal wall. He is tender over this. ASSESSMENT AND PLAN: I have called Radiology and placed an order for CT-guided drainage of this fluid collection. There is no evidence of extravasation of contrast in the fluid collection from his CAT scan. This fluid collection was not present on his admission date, 02/04/2020. We will plan CT-guided drainage of this fluid collection and continue intravenous antibiotics and observe, efforts to avoid operative intervention on this patient. Job ID: [id number]
--- NOTE | 2020-02-06 17:02 | CT ---
CT-guided abscess drainage abdomen Conscious sedation: At least 30 minutes spent with the patient for conscious sedation. FINDINGS: After explaining the procedure and answering all questions, limited CT imaging of the abdom en/pelvis again showed the loculated gas and fluid collection within the anterior lower abdomen. Sterile technique, buffered local anesthesia, conscious sedation, CT guidance, and an anterior midlin e approach were used to carefully advance a 19-gauge needle into the gas and fluid collection. Position was confirmed with CT. 0.035 Amplatz wire used to hold position. Tract was dilated to 10 Sharad nch. A 10 [place] locking loop catheter was carefully placed into the cavity without difficulty. A total volume of 100 cc thin slightly cloudy yellow liquid was aspirated. A portion sent to laborato for analysis. The catheter was secured externally and left draining to gravity. Patient tolerated the procedure wel l and was returned in improved condition. IMPRESSION : Technically successful CT-guided abdominal abscess drainage.
[2020-02-06] MEDS: Enoxaparin Sodium 40 MG/0.4 ML SYRINGE SC SCH (20:06)
[2020-02-07] MEDS: Sodium Chloride 0.9% 1,000 ML IV SCH ×3 (00:39→08:37)
[2020-02-07] MEDS: Piperacillin/Tazobactam 4.5 GM in Sodium Chloride 0.9% 100 ML IVPB SCH ×4 (03:03→20:24)
[2020-02-07 04:45] LABS: #Eosinphils 0.3 thou/uL (0.0-0.7); #Lymphocytes 0.8 thou/uL (1.20-3.40); #Neutrophils 17.6 thou/uL (1.40-6.50); %Eosinophils 1.3 % (0.0-10.0); %Lymphocytes 4.1 % (21.0-51.0); %Monocytes 4.8 % (0.0-10.0); %Neutrophils 89.7 % (42.0-75.0); Hemoglobin 11.6 g/dL (14.0-18.0); Mean Corpuscular HGB CONC 32.2 g/dL (32.0-36.0); Mean Corpuscular Hemoglobin 30.7 pg (27.0-31.0); Mean Corpuscular Volume 95.2 fL (78.0-98.0); Mean Platelet Volume 6.6 fL (7.4-10.4); Platelet Count 427 thou/uL (130-400); Red Blood Cell (RBC) Count 3.79 mill/uL (4.70-6.10); White Blood Cell (WBC) Count 19.6 thou/uL (4.8-10.8)
[2020-02-07 05:14] LABS: ALT (SGPT) 24 U/L (8-55); AST (SGOT) 21 U/L (5-34); Albumin 2.9 g/dL (3.4-4.8); Alkaline Phosphatase 104 U/L (40-110); Anion Gap 16 mmol/L (10-20); BUN (Urea Nitrogen) 10 mg/dL (8.4-25.7); Bilirubin, Total 0.7 mg/dL (0.2-1.2); Calc. Creatinine Clearance 150 mL/min (70-130); Calcium 8.2 mg/dL (7.8-10.44); Carbon Dioxide 24 mmol/L (23-31); Chloride 100 mmol/L (98-107); Estimated GFR-MDRD Greater than 90; Globulin 2.9 g/dL (2.4-3.5); Glucose 100 mg/dL (80-115); Potassium 3.1 mmol/L (3.5-5.1); Protein, Total 5.8 g/dL (5.8-8.1); Sodium 137 mmol/L (136-145)
[2020-02-07] MEDS: Pantoprazole 40 MG VIAL IVP SCH (08:39)
[2020-02-07] MEDS ORDERED: NS 0.9% w/ 40 MEQ KCL 1,000 ML IV SCH (11:15)
[2020-02-07] MEDS ORDERED: traMADol HCl 50 MG TAB PO PRN ×2 (12:43)
[2020-02-07] MEDS ORDERED: Ibuprofen 600 MG TAB PO PRN ×2 (12:43→12:48)
[2020-02-07] MEDS ORDERED: Acetaminophen 500 MG TAB PO PRN (12:48)
[2020-02-07] MEDS ORDERED: Potassium Chloride 40 MEQ in Sodium Chloride 0.9% 250 ML 250 ML IVPB SCH (13:00)
--- NOTE | 2020-02-07 14:14 | PRG ---
DATE OF SERVICE: 02/07/2020 SUBJECTIVE: Ac Navarro is doing well today. He underwent a CAT scan of the abdomen and pelvis yesterday, drainage of anterior fluid collection that appeared to be just serous. Cultures are negative, both Gram stain and cultures in the first 24 hours. The patient has had stool out of his ileostomy bag. He states his abdomen is baseline size protuberance. OBJECTIVE: VITAL SIGNS: Temperature 99.1 degrees, heart rate 94, blood pressure 147/80. His gastric drainage is 650 mL per last 24 hours and clear, nonbilious. The drainage from his drain placed with CAT scan yesterday is 50 mL of clear fluid. The patient is voiding in smaller increments and postvoid residual has not been checked. LUNGS: Clear to auscultation. CARDIAC: Regular rate and rhythm. No murmur or gallop. ABDOMEN: Soft, obese, protuberant. Midline wound looks good. Drainage from the CT-guided drain is clear yellowish, non enteric at all in appearance. EXTREMITIES: Unremarkable. LABORATORY DATA: White count has decreased from 37,000 on admission to 24,000 yesterday to 19,000 today. There is no longer a left shift. Basic metabolic profile is normal except for a potassium of 3.1, which will be replaced. Glucose is 98 to 122. Lungs are clear to auscultation. Cardiac; Regular rate and rhythm. No murmur or gallop. Abdomen; baseline protuberance. Minimal . Ileostomy and ileostomy bag wound looks good. Drainage character as noted above. ASSESSMENT AND PLAN: 1. Postoperative ileus. 2. Status post incarcerated right inguinal hernia, status post repair that wound has some slight redness, but very faint. There is no evidence of infection today. At this point, would recommend removing his NG tube, beginning full liquids and slowly advancing to a diabetic diet. In the case that he goes home over the weekend, I have arranged a CAT scan of the abdomen and pelvis on February 12 at 10 a.m., he should be there in 09:30. He should hold his Glucophage 48 hours prior to the scan. After having that scan, he should report to my office immediately. If he is discharged home, he can irrigate his drain with saline twice a day and be given saline syringes from the hospital. He will be instructed on care. Dr. Alfonso is covering over the weekend. In the case that this drainage decreases, it might be that the drain is removed and a followup CAT scan not be necessary, but in the case that it is, it is arranged planning a possible discharge over the weekend. I had talked to the patient about increasing mobilization and ambulation. I will see him Monday if he still in the hospital. Job ID: [id number]
[2020-02-07] MEDS: metFORMIN 500 MG TAB PO SCH (17:04)
[2020-02-07] MEDS: HumaLOG 300 UNITS/3 ML VIAL SC PRN (17:05)
[2020-02-07] MEDS: Enoxaparin Sodium 40 MG/0.4 ML SYRINGE SC SCH (20:25)
[2020-02-08] MEDS: HumaLOG 300 UNITS/3 ML VIAL SC PRN (00:41)
[2020-02-08] MEDS: Piperacillin/Tazobactam 4.5 GM in Sodium Chloride 0.9% 100 ML IVPB SCH ×2 (02:15→08:00)
[2020-02-08] MEDS: metFORMIN 500 MG TAB PO SCH ×2 (08:00→18:08)
[2020-02-08] MEDS: Atorvastatin Calcium 20 MG TAB PO SCH (09:18)
[2020-02-08] MEDS: Alogliptin 25 MG TAB PO SCH (09:18)
[2020-02-08] MEDS: Lisinopril 10 MG TAB PO SCH (09:18)
[2020-02-08] MEDS: Amlodipine 10 MG TAB PO SCH (09:18)
[2020-02-08] MEDS: Tamsulosin HCl 0.4 MG CAP PO SCH (09:19)
--- NOTE | 2020-02-08 09:42 | PRG ---
DATE OF SERVICE: 02/08/2020 SUBJECTIVE: Mr. Navarro had a right inguinal hernia repair and 2 days ago, had placement of an abdominal drain. The drain output has been minimal. Review of the microbiology shows that the cultures of the fluid are not growing any organisms. He has no specific complaints at present. He is tolerating a diet, ambulatory. OBJECTIVE: GENERAL: He is alert and oriented. LUNGS: Clear. HEART: Regular rhythm without tachycardia. ABDOMEN: Shows a right lower quadrant ileostomy with output of stool. The percutaneous drain is in place. The fluid draining is clear in consistency. The abdomen is nontender. Bowel sounds are present. VITAL SIGNS: Show a blood pressure of 148/82, pulse 88, and respirations 16. LABORATORY STUDIES: Glucose 132. IMPRESSION: He seems to be making satisfactory progress with no growth on the culture. I think his antibiotics can probably be discontinued. Perhaps, he will be able to go home tomorrow. Since the drain has only been in a short period of time, I may elect to leave it in place and have Dr. Zheng remove it at a later time. Job ID: [id number]
[2020-02-08] MEDS: Enoxaparin Sodium 40 MG/0.4 ML SYRINGE SC SCH (20:14)
[2020-02-09 06:01] LABS: #Basophils 0.1 thou/uL (0.0-0.2); #Eosinphils 0.4 thou/uL (0.0-0.7); #Lymphocytes 1.1 thou/uL (1.20-3.40); #Monocytes 1.1 thou/uL (0.11-0.59); #Neutrophils 7.3 thou/uL (1.40-6.50); %Basophils 0.5 % (0.0-1.0); %Eosinophils 4.2 % (0.0-10.0); %Lymphocytes 11.2 % (21.0-51.0); %Monocytes 10.9 % (0.0-10.0); %Neutrophils 73.1 % (42.0-75.0); Hemoglobin 12.4 g/dL (14.0-18.0); Mean Corpuscular HGB CONC 33.1 g/dL (32.0-36.0); Mean Corpuscular Hemoglobin 31.5 pg (27.0-31.0); Mean Corpuscular Volume 95.1 fL (78.0-98.0); Mean Platelet Volume 6.8 fL (7.4-10.4); Platelet Count 550 thou/uL (130-400); RBC Distribution Width 11.3 % (11.5-14.5); Red Blood Cell (RBC) Count 3.94 mill/uL (4.70-6.10)
[2020-02-09] MEDS: HumaLOG 300 UNITS/3 ML VIAL SC PRN (06:16)
[2020-02-09 06:21] LABS: Anion Gap 10 mmol/L (10-20); BUN (Urea Nitrogen) 11 mg/dL (8.4-25.7); Calc. Creatinine Clearance 159 mL/min (70-130); Calcium 8.6 mg/dL (7.8-10.44); Carbon Dioxide 30 mmol/L (23-31); Chloride 101 mmol/L (98-107); Estimated GFR-MDRD Greater than 90; Glucose 158 mg/dL (80-115); Potassium 3.3 mmol/L (3.5-5.1); Sodium 138 mmol/L (136-145)
[2020-02-09] MEDS: Alogliptin 25 MG TAB PO SCH (09:12)
[2020-02-09] MEDS: Atorvastatin Calcium 20 MG TAB PO SCH (09:12)
[2020-02-09] MEDS: Amlodipine 10 MG TAB PO SCH (09:12)
[2020-02-09] MEDS: Tamsulosin HCl 0.4 MG CAP PO SCH (09:12)
[2020-02-09] MEDS: metFORMIN 500 MG TAB PO SCH (09:12)
[2020-02-09] MEDS: Lisinopril 10 MG TAB PO SCH (09:12)
--- NOTE | 2020-02-09 10:40 | PRG ---
DATE OF SERVICE: 02/09/2020 Mr. Navarro is doing well and without any complaints. The drainage from the pigtail catheter has been minimal and clear in quality. As noted previously there was no growth. The incision appears to be good. The pigtail catheter was removed. The patient will be discharged home today to follow up with Dr. Zheng as per Dr. Zheng's instructions. Job ID: [id number]
[2020-02-09 15:04] VITALS: BP 119/82; TEMP 98.4
--- NOTE | 2020-02-10 12:50 | DIS ---
DATE OF ADMISSION: 02/04/2020 DATE OF DISCHARGE: 02/09/2020 HISTORY AND HOSPITAL COURSE: A 64-year-old male status post total abdominal colectomy and permanent ileostomy. He has had multiple operations for bowel obstruction in the past. He has had a left inguinal hernia repair in the past. He was recently hospitalized on January 23 to January 29, undergoing January 23, 2.5-hour to 3-hour laparotomy, adhesiolysis for bowel obstruction and incidental cholecystectomy due to appreciated gallstones. 01/23/2020, CAT scan just prior to the operation revealed fatty liver, cholelithiasis, parastomal hernia with mesenteric fat, dilated loops of small bowel, fecalization of high-grade bowel obstruction. The patient underwent the above-mentioned operation convalesced, had good ileostomy function, was sent home. He is readmitted on this occasion due to abdominal distention, nausea, vomiting, and lack of ileostomy output. The patient presented back to the emergency room, feeling ill and having pain. He underwent a CAT scan revealing a right inguinal hernia, thought to be a bowel, but on further evaluation in review with Dr. Rivas, another radiologist who has appreciated on coronal views that this was fatty tissue and not bowel. He did have some distended loops of bowel, which maybe chronic due to his total ileostomy status. Multiple attempts in the emergency room to place an NG tube was unsuccessful. He did have distended loops of small bowel and fecalization noted, read by Shivani. On exam, the patient had a right groin mass effect, could not reduce and it is very tender. On CAT scan, there was fluid in his gutter, small amount, but no definite abscess. There is no indication of bowel obstruction. The patient was admitted and taken to the operating room, where the right inguinal hernia repair was performed without mesh. There were some inflammatory changes in the hernia sac, but there was no bowel. There was no suspicious fluid noted. This hernia was repaired without mesh. An NG tube placed, and postoperatively, he was transferred to the floor. He was continued on NG tube suction. Eventually, this diminished and NG tube was removed. He was started on diet. Cultures from the hernia sac were unremarkable. Because of persistent elevated white count, repeat CAT scan was obtained and there was appreciated to be anterior abdominal wall fluid collection that was not there 3 to 4 days prior. Because of this persistent elevated white count, although it was slightly diminished and the left shift was improving, he underwent CT-guided drainage and this revealed more irrigation of fluid. Cultures were negative. The patient was continued with antibiotics. The cultures remained negative. The patient tolerated his diet. The surgical wound in his right groin from his hernia repair was intact without evident infection and he had good ileostomy function. The patient was discharged home on 02/09/2020. Prior to discharge, his CT-guided drain had been removed as output was minimal and cultures were negative. He tentatively has a CAT scan of the abdomen and pelvis planned in the next 4 to 5 days. The patient's niece, Margaret, will remove any love remaining in the next few days. He will follow up in my office after a CAT scan later in the week, but this CAT scan more likely will be canceled if he is doing well. Job ID: [id number]
--- NOTE | 2020-02-11 05:23 | PQF ---
SHERLEY PARISI RICHARD D MD [id number] SURG A- 3338 [id number] CLINICAL DOCUMENTATION CLARIFICATION FORM: POST DISCHARGE Addendum to original discharge summary date: ____ Late entry note date: __ DATE:02/11/2020 ATTN: Bo Theodore Please exercise your independent, professional judgment in responding to the clarification form. Clinical indicators are provided on the bottom of this form for your review Please check appropriate box(s) to clarify if the following diagnosis has been ruled in or ruled out: Ileus [ ] Ruled in diagnosis [ ] Continue to treat [ ] Resolved [ ] Ruled out diagnosis [ ] Cannot rule out diagnosis [ yes] Other diagnosis _parastomal hernia without bowel obstruction, ileus, incarcerated rt inguinal hernia without bowel obstruction, permanent ileostomy status [ ] Unable to determine In addition, please specify: Present on Admission (POA): [ yes ] Yes [ ] No [ ] Unable to determine For continuity of documentation, please document condition throughout progress notes and discharge summary. Thank You. CLINICAL INDICATORS - SIGNS / SYMPTOMS / LABS PN p1 02/04 he states his abdominal pain has resolved, although when the nurses tried to get him up, he has difficulty moving because of the pain PN p1 02/04 Ileus, CAT scan does not show any definitive abnormalities of the abdominal cavity, just postoperative changes, a few fluid collections here and there is expected PN p1 02/06 Dr. Zheng Postoperative ileus RISK FACTORS ED Notes p1 02/03 History of inflammatory bowel disease ED Notes p1 02/03 History of ulcerative colitis Operative report p1 02/03 64 year-old Male Operative report p1 02/03 Incarcerated right inguinal hernia Operative report p1 02/03 nonobstructive parastolmal hernia, chronic Operative report 02/03 hx of colectomy with permanent ileostomy PN 02/04 Morbid Obese TREATMENTS JAN 06 IVF NS 1L Jan 06 IV Morphine 4mg JAN 07 Ultram 50mg oral Inguinal hernia repair 02/[address] abdomen 02/05 Abscess Drainage 02/05 Dr Rivas PN p1 02/04 NG Tube (This form is maintained as a part of the permanent medical record) 2014 [email or web address], [employer]. All Rights Reserved [email or web address]
--- NOTE | 2020-02-11 05:24 | PQF ---
SHERLEY PARISI RICHARD D MD [id number] SURG A- 3338 [id number] CLINICAL DOCUMENTATION CLARIFICATION FORM: POST DISCHARGE Addendum to original discharge summary date: ____ Late entry note date: __ DATE:02/11/2020 ATTN: Bo Theodore Please exercise your independent, professional judgment in responding to the clarification form. Clinical indicators are provided on the bottom of this form for your review Please check appropriate box(s) to clarify if the following diagnosis has been ruled in or ruled out: Peritoneal abscess [ ] Ruled in diagnosis [ ] Continue to treat [ ] Resolved [ ] Ruled out diagnosis [ ] Cannot rule out diagnosis [ yes ] Other diagnosis __no abscess [ ] Unable to determine In addition, please specify: Present on Admission (POA): [ ] Yes [ ] No [ ] Unable to determine For continuity of documentation, please document condition throughout progress notes and discharge summary. Thank You. CLINICAL INDICATORS - SIGNS / SYMPTOMS / LABS Laboratory 02/03 WBC 37.0. Neutrophils 91.3, Band 53 Microbiology Abscess culture 02/[address] abdomen 02/05 Impression: Abdominal fluid and gas collection as decribed above , suspicious for developing abscess. CT abdomen 02/05 Impression: technically successful CT-guided abdominal abscess drainage RISK FACTORS ED Notes p1 02/03 History of inflammatory bowel disease ED Notes p1 02/03 History of ulcerative colitis ED Notes p1 02/03 DM Operative report p1 02/03 64 year-old Male Operative report p1 02/03 Incarcerated right inguinal hernia Operative report p1 02/03 nonobstructive parastolmal hernia, chronic Operative report p1 02/03 hx of colectomy with permanent ileostomy PN p1 02/04 Morbid Obese TREATMENTS MAR 02/03 IV Vancomycin 1gm JAN 06 IVF NS 1L Jan 06 IV Morphine 4mg MAR 02/06 Ultram 50mg oral Inguinal hernia repair 02/[address] abdomen 02/05 Abscess Drainage 02/05 Dr Rivas (This form is maintained as a part of the permanent medical record) 2014 [employer], [employer]. All Rights Reserved [email or web address]
== END 2020-02-09 11:30 | disposition home or self-care (01) | DRG 351 ==
LOC: ERS 14:10 → SDC/OP 16:36 → SURG A 18:53
PROVIDERS: ADMIT Specialist; ATTEND Specialist
PROC: 0YQ50ZZ Repair Right Inguinal Region, Open Approach (ICD-10-PCS; principal; 2020-02-04)
PROC: 0DBU0ZZ Excision of Omentum, Open Approach (ICD-10-PCS; 2020-02-04)
PROC: 02HV33Z Insertion of Infusion Device into Superior Vena Cava, Percutaneous Approach (ICD-10-PCS; 2020-02-04)
PROC: 0W9G30Z Drainage of Peritoneal Cavity with Drainage Device, Percutaneous Approach (ICD-10-PCS; 2020-02-06)
DX: K40.30 Unilateral inguinal hernia, with obstruction, without gangrene, not specified as recurrent (principal); K56.7 Ileus, unspecified; E11.9 Type 2 diabetes mellitus without complications; I10 Essential (primary) hypertension; E88.81 Metabolic syndrome and other insulin resistance; E66.01 Morbid (severe) obesity due to excess calories; K43.5 Parastomal hernia without obstruction or gangrene; Z79.899 Other long term (current) drug therapy; Z79.84 Long term (current) use of oral hypoglycemic drugs; Z90.49 Acquired absence of other specified parts of digestive tract; Z68.30 Body mass index [BMI] 30.0-30.9, adult; Z93.2 Ileostomy status
CPT/HCPCS: 36415; 36416; 49020; 71045; 74018; 74177; 77002; 80048; 80053; 83605; 83690; 85025; 85610; 85730; 86850; 86900; 86901; 87040; 87070; 87205; 88302; 93005; 94760; 96365; 96375; C1729; C9113; J1650; J2001; J2250; J2270; J2405; J2543; J2704; J3010; J3370; J3480; J3490; J7050; Q9967; S0020

== ENCOUNTER 2020-04-16 06:47 | Outpatient (CLI) | payer MEDICARE, BC, OTHER ==
[2020-04-16 14:19] LABS: #Eosinphils 0.2 thou/uL (0.0-0.7); #Lymphocytes 1.4 thou/uL (1.20-3.40); #Monocytes 0.8 thou/uL (0.11-0.59); #Neutrophils 4.6 thou/uL (1.40-6.50); %Basophils 0.4 % (0.0-1.0); %Eosinophils 3.5 % (0.0-10.0); %Lymphocytes 19.8 % (21.0-51.0); %Monocytes 11.7 % (0.0-10.0); %Neutrophils 64.7 % (42.0-75.0); Hemoglobin 13.7 g/dL (14.0-18.0); Mean Corpuscular HGB CONC 33.7 g/dL (32.0-36.0); Mean Platelet Volume 7.1 fL (7.4-10.4); Platelet Count 362 thou/uL (130-400); RBC Distribution Width 12.2 % (11.5-14.5); Red Blood Cell (RBC) Count 4.41 mill/uL (4.70-6.10); White Blood Cell (WBC) Count 7.1 thou/uL (4.8-10.8)
[2020-04-16 14:22] LABS: INR-International Normal Ratio 0.9; Prothrombin Time 11.7 sec (12.0-14.7)
[2020-04-16 14:54] LABS: Bacteria/HPF None Seen HPF (None Seen); Bilirubin Negative (Negative); Blood, Urine Negative (Negative); Calcium Oxalate Crystals 2+ HPF (None Seen); Clarity Turbid (Clear); Glucose, Urine (Dipstick) Normal (Negative); Leukocyte Negative Leu/uL (Negative); Mucous/LPF 1+ LPF (<2+); Nitrite Negative (Negative); Protein, Urine (Dipstick) 30 mg/dL (Neg-Trace); Squamous Epithelial None Seen HPF (0-3); Urobilinogen Normal mg/dL (Less than 2); WBC/HPF 0-3 HPF (0-3)
== END 2020-04-16 06:48 | disposition home or self-care (01) ==
LOC: LABBT 06:47
PROVIDERS: ATTEND Orthopaedic Surgery
DX: Z01.818 Encounter for other preprocedural examination (principal); Z11.59 Encounter for screening for other viral diseases; M17.11 Unilateral primary osteoarthritis, right knee
CPT/HCPCS: 80048; 81001; 85025; 85027; 85610; 87081; U0003; 87635; 93005; 93010

== ENCOUNTER 2020-04-21 08:23 | Observation (INO) | payer MEDICARE, BC ==
[2020-04-21] MEDS ORDERED: Vancomycin 1.5 GRAM/300 ML BAG ONE (08:43)
[2020-04-21] MEDS ORDERED: Sodium Chloride 0.9% 100 ML ONE (08:44)
[2020-04-21] MEDS ORDERED: Tranexamic Acid 1,000 MG/10 ML VIAL ONE ×2 (08:44→14:11)
[2020-04-21] MEDS ORDERED: HYDROcodone/Acetaminophen 10/325 mg Tablet PO PRN ×3 (09:09→10:25)
[2020-04-21] MEDS ORDERED: Ondansetron PF 4 MG/2 ML Vial IVP PRN ×2 (09:09→10:25)
[2020-04-21] MEDS ORDERED: diphenhydrAMINE 25 MG CAP PO PRN (09:09)
[2020-04-21] MEDS ORDERED: Fentanyl 100 MCG/2 ML VIAL SLOW IVP PRN ×2 (09:09)
[2020-04-21] MEDS ORDERED: Promethazine HCl 25 MG/ML VIAL IM PRN ×3 (09:09→12:58)
[2020-04-21] MEDS ORDERED: Acetaminophen 325 MG TAB PO PRN (09:09)
[2020-04-21] MEDS ORDERED: traMADol HCl 50 MG TAB PO PRN ×3 (09:09→10:25)
[2020-04-21] MEDS ORDERED: Zolpidem Tartrate 5 MG TAB PO PRN ×2 (09:09→10:25)
[2020-04-21] MEDS ORDERED: Fentanyl 100 MCG/2 ML VIAL ONE ×6 (09:31→13:58)
[2020-04-21] MEDS ORDERED: Midazolam HCl 2 mg/2 ml Vial ONE ×2 (09:31→10:01)
[2020-04-21 09:37] LABS: Anion Gap 11 mmol/L (10-20); BUN (Urea Nitrogen) 17 mg/dL (8.4-25.7); Calc. Creatinine Clearance 111 mL/min (70-130); Calcium 9.7 mg/dL (7.8-10.44); Carbon Dioxide 26 mmol/L (23-31); Chloride 103 mmol/L (98-107); Estimated GFR-MDRD 77; Glucose 156 mg/dL (80-115); Potassium 4.4 mmol/L (3.5-5.1); Sodium 136 mmol/L (136-145)
[2020-04-21] MEDS ORDERED: Fentanyl 100 MCG/2 ML VIAL IV PRN (10:25)
[2020-04-21] MEDS ORDERED: Ropivacaine HCl/PF 250 ML in Premix Bag 1 BAG NERVE BLCK SCH (10:25)
[2020-04-21] MEDS ORDERED: Rocuronium Bromide 10 MG/ML (10ML VIAL) ONE (11:04)
[2020-04-21] MEDS ORDERED: Ondansetron PF 4 MG/2 ML Vial ONE (11:04)
[2020-04-21] MEDS ORDERED: PROPOFOL 200 MG/20 ML VIAL ONE (11:04)
[2020-04-21] MEDS ORDERED: Metoclopramide HCl 10 MG/2 ML VIAL ONE (11:04)
[2020-04-21] MEDS ORDERED: Lidocaine 1% PF 5 ML VIAL ONE (11:04)
[2020-04-21] MEDS ORDERED: Bupivacaine HCl 0.5%/Epinephrine 1:200,000/PF 30 ml Vial ONE (11:04)
[2020-04-21] MEDS ORDERED: Glycopyrrolate 0.2 MG/ML 5 ML SYRINGE ONE (11:04)
[2020-04-21] MEDS ORDERED: Ropivacaine 0.2% HCl/PF (40 MG/20 ML VIAL) ONE (11:04)
[2020-04-21] MEDS ORDERED: Ketorolac Tromethamine 30 MG/ML VIAL IVP SCH (12:00)
[2020-04-21] MEDS ORDERED: Ondansetron HCl/PF 4 MG/2 ML Vial IVP PRN (12:58)
[2020-04-21] MEDS ORDERED: Ketorolac Tromethamine 30 MG/ML VIAL IVP PRN (12:58)
[2020-04-21] MEDS ORDERED: Meperidine HCl/PF 25 MG/ML VIAL SLOW IVP PRN (12:58)
[2020-04-21] MEDS ORDERED: HYDROmorphone 2 MG/ML VIAL SLOW IVP PRN (12:58)
[2020-04-21] MEDS ORDERED: Promethazine HCl 25 MG/ML VIAL SLOW IVP PRN (12:58)
[2020-04-21] MEDS ORDERED: Ketorolac Tromethamine 30 MG/ML VIAL ONE (13:43)
--- NOTE | 2020-04-21 14:00 | RAD ---
EXAM: 2 views of the left knee HISTORY: Knee arthroplasty COMPARISON: None FINDINGS: No knee effusion is seen. The patient is status post knee arthroplasty without perihardware lucency or fracture. Air in the soft tissues is from recent surgery. IMPRESSION: Status post knee arthroplasty without evidence of complication.
[2020-04-21 14:39] VITALS: BMI 33.3
[2020-04-21] MEDS: Sodium Chloride 0.9% 1,000 ML IV SCH ×2 (14:59→18:43)
[2020-04-21] MEDS: Ketorolac Tromethamine 30 MG/ML VIAL IVP SCH ×2 (15:02→21:08)
[2020-04-21] MEDS: CEFAZOLIN 2 GM in Premix Bag 1 BAG IVPB SCH (15:03)
[2020-04-21] MEDS: metFORMIN 500 MG TAB PO SCH (17:04)
[2020-04-21] MEDS ORDERED: Dextrose 50% Abboject 50 ML SYRINGE SLOW IVP PRN (19:19)
[2020-04-21] MEDS ORDERED: Dextrose 5% in Water 1,000 ML IV PRN (19:19)
[2020-04-21] MEDS ORDERED: HumaLOG 300 UNITS/3 ML VIAL SC PRN ×2 (19:19)
--- NOTE | 2020-04-21 20:34 | CON ---
DATE OF CONSULTATION: 04/21/2020 TIME OF ASSESSMENT: 1800 hours. REASON FOR CONSULTATION: Medical management. HISTORY OF PRESENT ILLNESS: Mr. Navarro is a 64-year-old gentleman, who is status post a total left knee replacement done earlier today. This was done by Dr. David and he has been referred for medical management given his multiple comorbidities including hypertension and diabetes mellitus. The patient states he is without any complaints at this time. He has not had anything to eat yet as he just recently woke up fully from the anesthesia. He states that prior to the surgery, he had pretty severe pain that was limiting his activity level and causing difficulty in sleeping, therefore underwent surgery. At the moment, he states his pain is well controlled. He has been moving about with the help of physical therapy. He denies having any chest pain, palpitation, or shortness of breath. No headaches or dizziness. No nausea or vomiting. Overall, he feels well and is without any complaints at present. PAST MEDICAL HISTORY: 1. Hypertension. 2. Diabetes mellitus type 2. 3. Diverticulitis. 4. Ulcerative colitis. 5. Bilateral knee osteoarthritis. PAST SURGICAL HISTORY: 1. Colostomy in 1993. 2. Hernia repairs in 1964 and 2001. 3. Colostomy in 1999. 4. Laparotomy with cholecystectomy and lysis of adhesions in January 2020. 5. Status post incarcerated right inguinal hernia repair, February 04, 2020. 6. CT-guided abdominal abscess drainage in February 2020. SOCIAL HISTORY: The patient denies any tobacco use, alcohol consumption, or illicit drug use. He lives alone. FAMILY HISTORY: 1. His father is with heart disease. 2. Mother is and had history of arthritis. ALLERGIES: NO KNOWN DRUG ALLERGIES. CURRENT MEDICATIONS: 1. Metformin. 2. Januvia. 3. Glipizide XL. 4. Lipitor. 5. Lisinopril. 6. Amlodipine. PHYSICAL EXAMINATION: GENERAL: The patient appears well developed, well nourished, is resting comfortably in bed and is in no acute distress. VITAL SIGNS: Temperature 98, pulse 92, respirations 16, O2 saturation 92% on 2 L by nasal cannula, and blood pressure 132/77. HEENT: Normocephalic and atraumatic. Pupils are equal, round, and reactive to light. Sclerae without icterus. Oropharynx is clear. NECK: Supple. LUNGS: Clear to auscultation bilaterally without wheezes, rales, or rhonchi. CARDIAC: Regular rate and rhythm. ABDOMEN: Soft, nontender, and nondistended. Normoactive bowel sounds present. No guarding or rigidity. Colostomy in place to the right lower quadrant. EXTREMITIES: No lower leg swelling or edema. NEUROLOGIC: Alert and oriented x3. SKIN: Warm and dry. LABORATORY DATA: 04/21/2020, sodium 136, potassium 4.4, BUN 17, creatinine 0.97 , GFR 77, glucose 156, calcium 9.7. IMAGING DATA: Left knee x-ray. Status post knee arthroplasty without evidence of complication. EKG done on April 16, 2010 showed normal sinus rhythm with a heart rate of 94. No ST changes or T-wave abnormalities. IMPRESSION AND PLAN: Mr. Navarro is a very pleasant 64-year-old gentleman, who is status post left total knee replacement, who has been referred for management of the following. 1. Diabetes mellitus. Home medications have been reconciled already. I have ordered insulin sliding scale and Accu-Cheks. Continue to monitor glucose. 2. Hypertension. Home medications have been reconciled. Blood pressure currently 130s systolic. We will change the start date on amlodipine to tomorrow morning given the fact that analgesia is likely affecting blood pressure. Should blood pressure increase through the evening, we can cover with p.r.n. antihypertensives. 3. Hyperlipidemia. Home medications have been reconciled. Status post left total knee replacement. Continue with analgesia including fentanyl as per Dr. David. Disposition to be determined by Dr. David. 4. Gastrointestinal prophylaxis with famotidine. 5. Deep venous thrombosis prophylaxis. Mechanical SCDs in place. Thank you for this consultation. We will continue to follow the patient with you. Job ID: [id number] [facility]
[2020-04-21] MEDS: Ferrous Gluconate 324 MG TAB PO SCH (20:59)
[2020-04-21] MEDS: Aspirin 81 mg Enteric Coated Tablet PO SCH (20:59)
[2020-04-21] MEDS: Famotidine/PF 20 mg/2ml Vial SLOW IVP SCH (21:00)
[2020-04-21] MEDS ORDERED: Amlodipine 10 MG TAB PO SCH ×2 (21:00)
[2020-04-21] MEDS: Senokot S 8.6-50 MG TAB PO SCH (21:01)
[2020-04-22] MEDS: CEFAZOLIN 2 GM in Premix Bag 1 BAG IVPB SCH (00:01)
[2020-04-22 05:54] LABS: Hemoglobin 12.3 g/dL (14.0-18.0); Mean Corpuscular HGB CONC 34.1 g/dL (32.0-36.0); Mean Corpuscular Volume 93.7 fL (78.0-98.0); Mean Platelet Volume 6.4 fL (7.4-10.4); Platelet Count 250 thou/uL (130-400); RBC Distribution Width 12.2 % (11.5-14.5); Red Blood Cell (RBC) Count 3.86 mill/uL (4.70-6.10); White Blood Cell (WBC) Count 7.9 thou/uL (4.8-10.8)
[2020-04-22] MEDS: Ketorolac Tromethamine 30 MG/ML VIAL IVP SCH ×3 (05:55→21:50)
[2020-04-22] MEDS: Sodium Chloride 0.9% 1,000 ML IV SCH ×2 (06:01→14:17)
--- NOTE | 2020-04-22 06:38 | OP ---
DATE OF PROCEDURE: 04/21/2020 PREOPERATIVE DIAGNOSIS: Degenerative joint disease, left knee. POSTOPERATIVE DIAGNOSIS: Degenerative joint disease, left knee. PROCEDURE PERFORMED: Left total knee arthroplasty using Shai Triathlon 6 femur, 5 tibia, 9-mm CS X3 polyethylene, and A35 patella. FUR BLENDER: Piero Cummings PA-C BLOOD LOSS: Minimal. SPECIMEN: None. DRAINS: None. COMPLICATIONS: None. PROCEDURE IN DETAIL: After informed consent was obtained in the preoperative holding area, the patient was taken to the operative suite where general anesthesia was induced. Once adequate level of general anesthesia was obtained, the patient was positioned and a well-padded tourniquet was placed around the left proximal thigh. The left lower extremity was then prepped and draped in the usual sterile fashion. Prior to exsanguination, a time-out was called and all members of the surgical team agreed upon site, surgeon, and patient. The extremity was then exsanguinated and the tourniquet was raised. A midline longitudinal incision was then made directly over the patella extending 2 fingerbreadths above the superior pole of the patella and 2 fingerbreadths inferior to the inferior patellar pole of the patella. Deeper subcutaneous layers were dissected sharply and local bleeding was controlled with Bovie electrocautery. A quad tendon longitudinal split was then made sharply and a median parapatellar arthrotomy was carried out both sharp and with Bovie electrocautery, carried down to 1 fingerbreadth medial to the tibial tubercle. The knee was then placed into flexion and the patella was everted nicely, and a copious fat pad ectomy was performed allowing for greater exposure of the tibia. The computer-assisted distal femoral fiducial was then placed and pinned firmly, and the distal femoral cutting guide was pinned firmly into place. The oscillating saw was then used to remove the appropriate amount of bone. The 4-in-1 cutting block was then placed on the distal femur and the oscillating saw was used to remove the appropriate amount of bone off the anterior, posterior, and chamfer cuts. After completion of bone cuts, the anterior cruciate ligament was resected sharply and the posterior cruciate ligament retractor was placed and the tibia was subluxed for better exposure. Partial meniscectomies were carried out, and the tibial computer-assisted fiducial was pinned, and the cutting guide was placed. Oscillating saw was then used to remove the bone, with Hohmann retractors used to take care and protect the collateral ligaments. After the tibial resection was performed, a laminar customs consultant was placed in between the freshened bone cuts. The knee placed at 90 degrees and further bilateral meniscectomies were carried out, and the curved osteotome and curettage were used to remove any excess bone spurs in the posterior compartment. The trial femoral component, tibial baseplate were placed with the appropriate polyethylene trial insert with an appropriate polyethylene spacer and patellar button. The knee was taken through full range of motion with flexion and extension from 0 to 90 degrees and patellar broach squarely in the trochlea without any squinting or subluxation noted. The knee was also stable to varus and valgus stressing at 0, 15, 45, and 90 degrees of flexion. The drawer was negative. All trial components were then removed and the keel punch was used to provide the appropriate defect in the tibia with a mallet. The freshened bone cuts were copiously irrigated with pulsatile lavage of about 1.5 L to remove all excess debris. The freshened bone cuts were then dried with suction and lap sponge. The knee was placed in flexion and retractors were placed to provide access to all bone cuts. Tobramycin-impregnated methyl methacrylate cement was then placed on the freshened bone cuts and implants which were malleted firmly into place. Curettage and [place] elevators were used to remove any excess bone cement. The knee was placed into full extension and the patellar button was placed under compression, and the cement was allowed to cure. Once completed, the components were again taken through full range of motion and copious irrigation of the knee was carried out with another liter of normal saline. All components were inspected fully with full range of motion and varus and valgus stressing. There was no laxity noted and full extension was observed clinically. Primary closure was accomplished with #2 interrupted Vicryl stitch of the arthrotomy defect. This was oversewn with a #2 running Quill barbed stitch. The gravitational platelet system was then injected into the arthrotomy prior to closure. The subcutaneous layer was then closed with a running 0 barbed Monocryl stitch and skin closure accomplished with a running subcuticular 3-0 Monocryl barbed Quill stitch and augmented with cement on the skin. Tourniquet was lowered. Good spontaneous return of distal pulses was noted clinically and a sterile dressing was applied to the incision. The procedure was terminated without any complications. The patient was awakened in the operative suite and the was removed, and the patient was taken to the recovery room in stable condition. Job ID: [id number]
[2020-04-22] MEDS: Famotidine/PF 20 mg/2ml Vial SLOW IVP SCH ×2 (08:18→21:51)
[2020-04-22] MEDS: metFORMIN 500 MG TAB PO SCH ×2 (08:18→17:59)
[2020-04-22] MEDS: Multivitamin W/ Minerals 1 TAB PO SCH (08:18)
[2020-04-22] MEDS: Atorvastatin Calcium 20 MG TAB PO SCH (08:18)
[2020-04-22] MEDS: Aspirin 81 mg Enteric Coated Tablet PO SCH ×2 (08:18→21:51)
[2020-04-22] MEDS: Lisinopril 10 MG TAB PO SCH (08:19)
[2020-04-22] MEDS: Ferrous Gluconate 324 MG TAB PO SCH ×2 (08:19→21:51)
[2020-04-22] MEDS: Senokot S 8.6-50 MG TAB PO SCH ×2 (08:19→21:51)
[2020-04-22] MEDS ORDERED: Alogliptin 25 MG TAB PO SCH (09:00)
[2020-04-22] MEDS ORDERED: Ropivacaine 0.2% 550 ML 550 ML NERVE BLCK SCH (10:00)
[2020-04-22] MEDS: HYDROcodone/Acetaminophen 10/325 mg Tablet PO PRN ×2 (10:15→17:59)
--- NOTE | 2020-04-22 13:46 | PDOC.HOSPP ---
- Subjective Encounter Date: 04/22/20 Encounter Time: 12:00 Subjective: no sob or chest pain is ambulating with PT - Objective Vital Signs & Weight: Vital Signs (12 hours) Temp Pulse Resp BP BP Pulse Ox 04/22/20 11:00 98.5 F 98 16 135/76 98 04/22/20 07:18 98.3 F 97 16 127/71 96 04/22/20 03:15 99.2 F 99 17 122/70 143/87 H 93 L Weight Admit Weight 246 lb Weight 246 lb I&O: 04/21/20 04/22/20 04/23/20 06:59 06:59 06:59 Intake Total 1930 Output Total 1100 Balance 830 Result Diagrams: 04/22/20 05:33 04/21/20 09:06 Additional Labs: Accuchecks 04/22/20 04/22/20 04/21/20 11:04 06:13 22:39 POC Glucose 103 145 H 129 H Hospitalist ROS - Medication Medications: Active Medications Generic Name Dose Route Start Last Admin Trade Name Freq PRN Reason Stop Dose Admin Hydrocodone Bitart/Acetaminophen 2 tab 04/21/20 10:25 04/22/20 10:15 [place] 10/325 PO 2 tab Q4H PRN Administration PAIN (4-6) Alogliptin Benzoate 25 mg 04/22/20 09:00 04/22/20 08:18 Alogliptin PO 25 mg DAILY JEROD Administration Aspirin 81 mg 04/21/20 21:00 04/22/20 08:18 Ecotrin PO 81 mg BID JEROD Administration Atorvastatin Calcium 20 mg 04/22/20 09:00 04/22/20 08:18 Lipitor PO 20 mg DAILY JEROD Administration Famotidine 20 mg 04/21/20 21:00 04/22/20 08:18 Pepcid SLOW IVP 20 mg Q12HR JEROD Administration Ferrous Gluconate 324 mg 04/21/20 21:00 04/22/20 08:19 Fergon PO 324 mg BID JEROD Administration Glipizide 10 mg 04/21/20 21:00 04/22/20 08:18 Glucotrol Xl PO 10 mg BID JEROD Administration Sodium Chloride 1,000 mls @ 100 mls/hr 04/21/20 09:15 04/22/20 06:01 Normal Saline 0.9% IV Not Given .Q10H JEROD Iron/Minerals/Multivitamins 1 tab 04/22/20 09:00 04/22/20 08:18 Theragran M PO 1 tab DAILY JEROD Administration Ketorolac Tromethamine 15 mg 04/21/20 14:00 04/22/20 05:55 Toradol IVP 04/23/20 14:01 15 mg Q8HR JEROD Administration Lisinopril 10 mg 04/22/20 09:00 04/22/20 08:19 Zestril PO 10 mg DAILY JEROD Administration Metformin HCl 1,000 mg 04/21/20 17:00 04/22/20 08:18 Glucophage PO 1,000 mg BID-WM JEROD Administration Senna/Docusate Sodium 2 tab 04/21/20 21:00 04/22/20 08:19 Senokot S PO 2 tab BID JEROD Administration - Exam General Appearance: awake alert Eye: PERRL, anicteric sclera ENT: no oropharyngeal lesions, moist mucosa Neck: supple, no JVD Heart: RRR, no murmur Respiratory: no wheezes, no rales Gastrointestinal: soft, non-tender, non-distended, normal bowel sounds Extremities: no cyanosis, no edema Neurological: cranial nerve grossly intact, no focal deficits Psychiatric: normal affect, A&O x 3 Hosp A/P (1) Status post total knee replacement, left Code(s): Z96.652 - PRESENCE OF LEFT ARTIFICIAL KNEE JOINT Status: Acute (2) DM type 2 (diabetes mellitus, type 2) Status: Chronic Qualifiers: Diabetes mellitus bottom scrubber insulin use: without bottom scrubber use (3) Obesity (BMI 30.0-34.9) Code(s): E66.9 - OBESITY, UNSPECIFIED Status: Chronic (4) Hypertension Code(s): I10 - ESSENTIAL (PRIMARY) HYPERTENSION Status: Chronic Qualifiers: Hypertension type: essential hypertension Qualified Code(s): I10 - Essential (primary) hypertension (5) Ulcerative colitis Code(s): K51.90 - ULCERATIVE COLITIS, UNSPECIFIED, WITHOUT COMPLICATIONS Status: Chronic Qualifiers: Ulcerative colitis location: unspecified ulcerative colitis location - Plan continue asp bid, glucotrol, metformin, alogliptin, lisinopril and norvasc is on ropivacaine nr block, fentanyl prn hemostable
[2020-04-22] MEDS ORDERED: Amlodipine 10 MG TAB PO SCH (21:00)
[2020-04-23] MEDS: Sodium Chloride 0.9% 1,000 ML IV SCH ×2 (00:17→12:47)
[2020-04-23] MEDS: HYDROcodone/Acetaminophen 10/325 mg Tablet PO PRN ×2 (05:31→12:50)
[2020-04-23] MEDS: Ketorolac Tromethamine 30 MG/ML VIAL IVP SCH (05:32)
[2020-04-23] MEDS ORDERED: metFORMIN 500 MG TAB PO SCH (08:00)
[2020-04-23] MEDS: Multivitamin W/ Minerals 1 TAB PO SCH (08:23)
[2020-04-23] MEDS: Aspirin 81 mg Enteric Coated Tablet PO SCH (08:23)
[2020-04-23] MEDS: Famotidine/PF 20 mg/2ml Vial SLOW IVP SCH (08:23)
[2020-04-23] MEDS: Senokot S 8.6-50 MG TAB PO SCH (08:23)
[2020-04-23] MEDS: Lisinopril 10 MG TAB PO SCH (08:24)
[2020-04-23] MEDS: Atorvastatin Calcium 20 MG TAB PO SCH (08:24)
[2020-04-23] MEDS: Ferrous Gluconate 324 MG TAB PO SCH (08:24)
[2020-04-23 12:27] VITALS: BP 120/73; TEMP 98.3
--- NOTE | 2020-04-24 15:11 | DIS ---
DATE OF ADMISSION: 04/22/2020 DATE OF DISCHARGE: 04/23/2020 This is Piero Cummings PA-C dictating a report for Power David MD. PREOPERATIVE DIAGNOSIS: Left knee osteoarthritis. POSTOPERATIVE DIAGNOSIS: Left knee osteoarthritis. PROCEDURE: The patient underwent a total knee replacement on the left. HOSPITAL COURSE: Hospital stay unremarkable. He was admitted to [address], where worked with staff, Physical Therapy, and Occupational Therapy and progressed quite well. The patient left the next day. DISCHARGE CONDITION: Good/stable. DISPOSITION: Home with family. FOLLOWUP: Follow up would be in 2 to 4 weeks or sooner if there are problems and/or concerns. DISCHARGE MEDICATIONS: Given with usage instructions. Job ID: [id number]
== END 2020-04-23 13:46 | disposition home or self-care (01) ==
LOC: SDC 08:23 → SURG B 09:09 → SDC 04-22 17:58 → SURG B 04-22 18:06
PROVIDERS: ADMIT Orthopaedic Surgery; ATTEND Orthopaedic Surgery
PROC: 0SRD0J9 Replacement of Left Knee Joint with Synthetic Substitute, Cemented, Open Approach (ICD-10-PCS; principal; 2020-04-21)
PROC: 8E0YXBZ Computer Assisted Procedure of Lower Extremity (ICD-10-PCS; 2020-04-21)
PROC: 3E0T3BZ Introduction of Anesthetic Agent into Peripheral Nerves and Plexi, Percutaneous Approach (ICD-10-PCS; 2020-04-21)
DX: M17.0 Bilateral primary osteoarthritis of knee (principal); G89.18 Other acute postprocedural pain; I10 Essential (primary) hypertension; E11.9 Type 2 diabetes mellitus without complications; E78.5 Hyperlipidemia, unspecified; K51.90 Ulcerative colitis, unspecified, without complications; E66.9 Obesity, unspecified; Z68.33 Body mass index [BMI] 33.0-33.9, adult; Z79.84 Long term (current) use of oral hypoglycemic drugs; Z79.899 Other long term (current) drug therapy; Z90.49 Acquired absence of other specified parts of digestive tract
CPT/HCPCS: 20985; 27447; 64446; 73560; 80048; 82962 ×3; 85027; 96374; 96375; 96376; 97110 ×2; 97116 ×3; C1713; C1776; G0378 ×2; 36415; 36416; J0670; J0690; J1885; J2250; J2405; J2704; J2765; J2795; J3010; J3370; J3490; S0028

== ENCOUNTER 2020-09-10 06:34 | Outpatient (CLI) | payer MEDICARE, BC ==
[2020-09-10 12:43] LABS: #Eosinphils 0.3 10x3/uL (0.0-0.5); #Monocytes 1.1 10x3/uL (0.0-1.1); #Neutrophils 4.7 10x3/uL (1.5-8.4); %Basophils 0.5 % (0.0-2.0); %Eosinophils 3.6 % (0.0-6.0); %Lymphocytes 18.9 % (18.0-47.0); %Neutrophils 62.2 % (40.0-75.0); Hemoglobin 15.1 g/dL (14.0-18.0); Mean Corpuscular HGB CONC 33.6 G/DL (32.0-36.0); Mean Corpuscular Hemoglobin 30.3 PG (27.0-33.0); Platelet Count 361 10x3/uL (130-400); RBC Distribution Width 12.3 % (11.5-14.5); Red Blood Cell (RBC) Count 4.99 10x6/uL (4.40-5.80); White Blood Cell (WBC) Count 7.6 10x3/uL (4.5-11.0)
[2020-09-10 12:51] LABS: Prothrombin Time 10.1 sec (9.5-12.1)
[2020-09-10 13:10] LABS: Anion Gap 17 mmol/L (10-20); BUN (Urea Nitrogen) 14 mg/dL (8.4-25.7); Calc. Creatinine Clearance 0 mL/min (70-130); Calcium 9.6 mg/dL (7.8-10.44); Carbon Dioxide 24 mmol/L (23-31); Chloride 100 mmol/L (98-107); Estimated GFR-MDRD 75; Glucose 155 mg/dL (80-115); Potassium 4.7 mmol/L (3.5-5.1); Sodium 136 mmol/L (136-145)
[2020-09-11 15:01] LABS: SARS-CoV-2 MS2 Positive; SARS-CoV-2 N Gene Negative; SARS-CoV-2 S Gene Negative; SARS-CoV-2 by NAA Not Detected (NotDetected); SARS-CoV-2 orf1ab Negative
== END 2020-09-10 06:35 | disposition home or self-care (01) ==
LOC: LABBT 06:34
PROVIDERS: ATTEND Orthopaedic Surgery
DX: Z01.812 Encounter for preprocedural laboratory examination (principal); M17.11 Unilateral primary osteoarthritis, right knee; Z20.828 Contact with and (suspected) exposure to other viral communicable diseases
CPT/HCPCS: 80048; 85025; 85610; 87081; U0003; 87635

== ENCOUNTER 2020-09-10 10:00 | Inpatient (IN) | payer MEDICARE, BC ==
[2020-09-14 11:57] VITALS: BMI 29.1
[2020-09-15] MEDS ORDERED: Vancomycin 1.5 GRAM/300 ML BAG ONE (06:01)
[2020-09-15] MEDS ORDERED: Tranexamic Acid 1,000 MG/10 ML VIAL ONE (06:02)
[2020-09-15] MEDS ORDERED: Sodium Chloride 0.9% 100 ML ONE (06:02)
[2020-09-15] MEDS ORDERED: Fentanyl 100 MCG/2 ML VIAL ONE ×2 (06:17→06:40)
[2020-09-15] MEDS ORDERED: Midazolam HCl 2 mg/2 ml Vial ONE (06:40)
[2020-09-15] MEDS ORDERED: Zolpidem Tartrate 5 MG TAB PO PRN ×2 (06:55→07:45)
[2020-09-15] MEDS ORDERED: HYDROcodone/Acetaminophen 10/325 mg Tablet PO PRN ×3 (06:55→07:45)
[2020-09-15] MEDS ORDERED: diphenhydrAMINE 25 MG CAP PO PRN (06:55)
[2020-09-15] MEDS ORDERED: Ondansetron PF 4 MG/2 ML Vial IVP PRN ×2 (06:55→07:45)
[2020-09-15] MEDS ORDERED: Promethazine HCl 25 MG/ML VIAL IM PRN ×3 (06:55→08:50)
[2020-09-15] MEDS ORDERED: Acetaminophen 325 MG TAB PO PRN (06:55)
[2020-09-15] MEDS ORDERED: Fentanyl 100 MCG/2 ML VIAL IV PRN (07:44)
[2020-09-15] MEDS ORDERED: Ropivacaine HCl/PF 250 ML in Premix Bag 1 BAG NERVE BLCK SCH (07:45)
[2020-09-15] MEDS ORDERED: traMADol HCl 50 MG TAB PO PRN ×2 (07:45)
[2020-09-15] MEDS ORDERED: metFORMIN 500 MG TAB PO SCH (08:00)
[2020-09-15] MEDS ORDERED: Ondansetron HCl/PF 4 MG/2 ML Vial IVP PRN (08:50)
[2020-09-15] MEDS ORDERED: Promethazine HCl 25 MG/ML VIAL SLOW IVP PRN (08:50)
[2020-09-15] MEDS ORDERED: Alogliptin 25 MG TAB PO SCH (09:00)
[2020-09-15] MEDS ORDERED: PROPOFOL 200 MG/20 ML VIAL ONE (10:42)
[2020-09-15] MEDS ORDERED: Bupivacaine PF 0.5% 30 ML VIAL ONE (10:42)
[2020-09-15] MEDS ORDERED: Ropivacaine 0.2% HCl/PF (40 MG/20 ML VIAL) ONE (10:42)
[2020-09-15] MEDS ORDERED: Lidocaine 1% PF 5 ML VIAL ONE (10:42)
[2020-09-15] MEDS ORDERED: PHENYLEPHRINE-NS 100 MCG/ML 10 ML SYRINGE ONE (10:42)
[2020-09-15] MEDS ORDERED: Ondansetron PF 4 MG/2 ML Vial ONE (10:42)
--- NOTE | 2020-09-15 10:59 | RAD ---
RIGHT KNEE 2 VIEWS: Date: 09/15/2020 HISTORY: Total knee replacement, postop exam. FINDINGS/IMPRESSION: There are recent postop changes of total knee arthroplasty in good position and alignment. Soft tissu e air is present. POS: AH
[2020-09-15] MEDS: Senokot S 8.6-50 MG TAB PO SCH ×2 (11:08→21:38)
[2020-09-15] MEDS: Aspirin 81 mg Enteric Coated Tablet PO SCH ×2 (11:08→21:38)
[2020-09-15] MEDS: Multivitamin W/ Minerals 1 TAB PO SCH (11:08)
[2020-09-15] MEDS: Ferrous Gluconate 324 MG TAB PO SCH ×2 (11:09→21:39)
--- NOTE | 2020-09-15 11:14 | OP ---
DATE OF PROCEDURE: 09/15/2020 PROCEDURE PERFORMED: Right total knee arthroplasty using a Shai Triathlon 5 femur, 5 tibia, 9 mm CS X3 polyethylene and A32 patella. STEAMBOAT INSPECTOR: Zaheer Mckinnon MD The licensed loan officer assistant/co-surgeon was present through the entire procedure and was responsible for providing exposure, tissue retraction and any necessary limb or tissue manipulation required to obtain necessary reduction or hardware placement. The licensed loan officer assistant/co-surgeon also provided bleeding control, tissue closure, and suturing in conjunction with the primary surgeon. SPECIMEN: None. DRAINS: None. COMPLICATION: None. TOURNIQUET TIME: 55 minutes. PROCEDURE IN DETAIL: After informed consent was obtained in the preoperative holding area, the patient was taken to the operative suite where general anesthesia was induced. Once adequate level of general anesthesia was obtained, the patient was positioned and a well-padded tourniquet was placed around the right proximal thigh. The right lower extremity was then prepped and draped in the usual sterile fashion. Prior to exsanguination, a time-out was called and all members of the surgical team agreed upon site, surgeon, and patient. The extremity was then exsanguinated and the tourniquet was raised. A midline longitudinal incision was then made directly over the patella extending 2 fingerbreadths above the superior pole of the patella and 2 fingerbreadths inferior to the inferior patellar pole of the patella. Deeper subcutaneous layers were dissected sharply and local bleeding was controlled with Bovie electrocautery. A quad tendon longitudinal split was then made sharply and a median parapatellar arthrotomy was carried out both sharp and with Bovie electrocautery, carried down to 1 fingerbreadth medial to the tibial tubercle. The knee was then placed into flexion and the patella was everted nicely, and a copious fat pad ectomy was performed allowing for greater exposure of the tibia. The computer-assisted distal femoral fiducial was then placed and pinned firmly, and the distal femoral cutting guide was pinned firmly into place. The oscillating saw was then used to remove the appropriate amount of bone. The 4-in-1 cutting block was then placed on the distal femur and the oscillating saw was used to remove the appropriate amount of bone off the anterior, posterior, and chamfer cuts. After completion of bone cuts, the anterior cruciate ligament was resected sharply and the posterior cruciate ligament retractor was placed and the tibia was subluxed for better exposure. Partial meniscectomies were carried out, and the tibial computer-assisted fiducial was pinned, and the cutting guide was placed. Oscillating saw was then used to remove the bone, with Hohmann retractors used to take care and protect the collateral ligaments. After the tibial resection was performed, a laminar gastroenterology nurse practitioner was placed in between the freshened bone cuts. The knee placed at 90 degrees and further bilateral meniscectomies were carried out, and the curved osteotome and curettage were used to remove any excess bone spurs in the posterior compartment. The trial femoral component, tibial baseplate were placed with the appropriate polyethylene trial insert with an appropriate polyethylene spacer and patellar button. The knee was taken through full range of motion with flexion and extension from 0 to 90 degrees and patellar broach squarely in the trochlea without any squinting or subluxation noted. The knee was also stable to varus and valgus stressing at 0, 15, 45, and 90 degrees of flexion. The drawer was negative. All trial components were then removed and the keel punch was used to provide the appropriate defect in the tibia with a mallet. The freshened bone cuts were copiously irrigated with pulsatile lavage of about 1.5 L to remove all excess debris. The freshened bone cuts were then dried with suction and lap sponge. The knee was placed in flexion and retractors were placed to provide access to all bone cuts. Tobramycin-impregnated methyl methacrylate cement was then placed on the freshened bone cuts and implants which were malleted firmly into place. Curettage and Lolita elevators were used to remove any excess bone cement. The knee was placed into full extension and the patellar button was placed under compression, and the cement was allowed to cure. Once completed, the components were again taken through full range of motion and copious irrigation of the knee was carried out with another liter of normal saline. All components were inspected fully with full range of motion and varus and valgus stressing. There was no laxity noted and full extension was observed clinically. Primary closure was accomplished with #2 interrupted Vicryl stitch of the arthrotomy defect. This was oversewn with a #2 running Quill barbed stitch. The gravitational platelet system was then injected into the arthrotomy prior to closure. The subcutaneous layer was then closed with a running 0 barbed Monocryl stitch and skin closure accomplished with a running subcuticular 3-0 Monocryl barbed Quill stitch and augmented with cement on the skin. Tourniquet was lowered. Good spontaneous return of distal pulses was noted clinically and a sterile dressing was applied to the incision. The procedure was terminated without any complications. The patient was awakened in the operative suite, and the patient was taken to the recovery room in stable condition. Job ID: [id number]
[2020-09-15] MEDS: Sodium Chloride 0.9% 1,000 ML IV SCH ×2 (11:15→17:00)
[2020-09-15] MEDS ORDERED: HumaLOG 300 UNITS/3 ML VIAL SC PRN ×2 (11:36)
[2020-09-15] MEDS ORDERED: Dextrose 50% Abboject 50 ML SYRINGE SLOW IVP PRN (11:36)
[2020-09-15] MEDS ORDERED: Dextrose 5% in Water 1,000 ML IV PRN (11:36)
[2020-09-15] MEDS ORDERED: Ketorolac Tromethamine 30 MG/ML VIAL IVP SCH (12:00)
--- NOTE | 2020-09-15 12:07 | PDOC.HHP ---
Hospitalist HPI - History of Present Illness Right knee pain History of Present Illness: PCP: Christal Quispe The patient is a 64-year-old male with a past medical history of HTN, HLD, DM 2 and osteoarthritis of bilateral knees that presents to the hospital as a direct admit for a scheduled right total knee replacement by Dr. David. The patient reports chronic osteoarthritis to his right knee, symptoms worsened in October 2019. Reporting increased pain, swelling inflammation to the affected extremity. He trialed steroid injections, but decided to go ahead and schedule a total knee replacement. We were consulted for medical management of his chronic conditions. ED Course: Direct admit, not applicable. Hospitalist ROS - Review of Systems Constitutional: denies: fever, chills Respiratory: denies: cough, shortness of breath, hemoptysis Cardiovascular: denies: chest pain, palpitations, edema, light headedness Gastrointestinal: denies: nausea, vomiting, abdominal pain, diarrhea, melena, hematochezia Genitourinary: denies: dysuria, hematuria Neurological: denies: incoordination, change in speech, confusion All other systems reviewed; all pertinent +/- noted in HPI/Subj - Medication Medications: Active Medications Generic Name Dose Route Start Last Admin Trade Name Freq PRN Reason Stop Dose Admin Aspirin 81 mg 09/15/20 09:00 09/15/20 11:08 Aspirin 81 Mg Enteric Coated Tablet PO 81 mg BID JEROD Administration Ferrous Gluconate 324 mg 09/15/20 09:00 09/15/20 11:09 Ferrous Gluconate 324 Mg Tab PO 324 mg BID JEROD Administration Sodium Chloride 1,000 mls @ 100 mls/hr 09/15/20 07:00 09/15/20 11:15 Normal Saline 0.9% IV 1,000 mls .Q10H JEROD Administration Iron/Minerals/Multivitamins 1 tab 09/15/20 09:00 09/15/20 11:08 Multivitamin W/ Minerals 1 Tab PO 1 tab DAILY JEROD Administration Senna/Docusate Sodium 2 tab 09/15/20 09:00 09/15/20 11:08 Senokot S 8.6-50 Mg Tab PO 2 tab BID JEROD Administration Home medications: 1. Amlodipine 10 mg p.o. nightly 2. Lipitor 20 mg p.o. nightly 3. Glipizide 10 mg p.o. twice daily 4. Lisinopril 10 mg p.o. nightly 5. Metformin 1000 mg p.o. twice daily with meals 6. Januvia 100 mg p.o. daily Allergies: No known drug allergies Hospitalist History - Past Medical History Cardiac: reports: HTN, Hyperlipidemia Musculoskeletal: reports: Osteoarthritis (Bilateral knees) Endocrine: reports: Diabetes (Type II, top-[id number]) - Past Surgical History Past Surgical History: reports: Other (Left total knee replacement, inguinal hernia x3, colostomy (1993)) - Family History Family History: denies: diabetes mellitus Other Family History: Noncontributory to this case - Social History Smoking Status: Never smoker Alcohol: reports: None Drugs: reports: none Living Situation: Alone Occupation: Currently unemployed, retired Activity level: independent ambulation - Exam General Appearance: NAD, awake alert. negative: ill appearing Eye: anicteric sclera ENT: normocephalic atraumatic Neck: supple, symmetric Heart: RRR, no murmur, no gallops, no rubs, normal peripheral pulses Respiratory: CTAB, no wheezes, no rales, no ronchi, normal chest expansion, no tachypnea Gastrointestinal: soft, non-tender, non-distended, no bruit, no guarding, no rigidity Gastrointestinal - other findings: Hypoactive bowel sounds Extremities: no cyanosis, no edema Extremities - other findings: Right lower extremity Maynor bandage, nerve block Skin: no rashes Neurological: no focal deficits Psychiatric: normal affect, A&O x 3 Hospitalist Results - Labs Lab results: Preop BMP, CBC, INR unremarkable - EKG Interpretation EKG: Preop EKG normal sinus rhythm Hospitalist H&P A/P - Problem (1) Hypertension Code(s): I10 - ESSENTIAL (PRIMARY) HYPERTENSION Status: Chronic (2) Hyperlipidemia Code(s): E78.5 - HYPERLIPIDEMIA, UNSPECIFIED Status: Chronic (3) DM2 (diabetes mellitus, type 2) Status: Chronic (4) Status post total right knee replacement Code(s): Z96.651 - PRESENCE OF RIGHT ARTIFICIAL KNEE JOINT Status: Chronic - Plan Plan: #Hypertension Takes amlodipine and lisinopril at home. We will restart home medications. Continue to monitor BP. #Hyperlipidemia Continue home dose of Lipitor. #DM2 Moderate ISS AC/at bedtime Accu-Cheks. Hold home oral antihyperglycemics (Metformin, glipizide, Januvia) #Status post total right knee replacement POD #[address] David. Clinical course per Dr. David. Baby aspirin PT consulted Nerve block per anesthesia Full code. Discussed the case with Dr. Smyth
[2020-09-15] MEDS: Ketorolac Tromethamine 30 MG/ML VIAL IVP SCH ×2 (14:54→21:38)
[2020-09-15] MEDS: HYDROcodone/Acetaminophen 10/325 mg Tablet PO PRN (14:55)
[2020-09-15] MEDS: CEFAZOLIN 2 GM in Premix Bag 1 BAG IVPB SCH ×2 (14:55→21:37)
[2020-09-15] MEDS: Amlodipine 10 MG TAB PO SCH (21:38)
[2020-09-15] MEDS: Lisinopril 10 MG TAB PO SCH (21:39)
[2020-09-15] MEDS: Atorvastatin Calcium 20 MG TAB PO SCH (21:39)
[2020-09-16] MEDS: Sodium Chloride 0.9% 1,000 ML IV SCH ×2 (02:49→18:50)
[2020-09-16] MEDS: Ketorolac Tromethamine 30 MG/ML VIAL IVP SCH ×3 (05:08→20:51)
[2020-09-16 06:07] LABS: #Eosinphils 0.3 thou/uL (0.0-0.7); #Lymphocytes 0.7 thou/uL (1.20-3.40); #Monocytes 1.1 thou/uL (0.11-0.59); #Neutrophils 7.4 thou/uL (1.40-6.50); %Basophils 0.2 % (0.0-1.0); %Eosinophils 3.6 % (0.0-10.0); %Lymphocytes 6.9 % (21.0-51.0); %Monocytes 11.5 % (0.0-10.0); %Neutrophils 77.9 % (42.0-75.0); Hemoglobin 12.8 g/dL (14.0-18.0); Mean Corpuscular HGB CONC 33.6 g/dL (32.0-36.0); Mean Corpuscular Hemoglobin 31.9 pg (27.0-31.0); Mean Platelet Volume 6.7 fL (7.4-10.4); Platelet Count 231 thou/uL (130-400); RBC Distribution Width 11.8 % (11.5-14.5); Red Blood Cell (RBC) Count 4.01 mill/uL (4.70-6.10); White Blood Cell (WBC) Count 9.4 thou/uL (4.8-10.8)
[2020-09-16 06:25] LABS: Anion Gap 11 mmol/L (10-20); BUN (Urea Nitrogen) 22 mg/dL (8.4-25.7); Calc. Creatinine Clearance 101 mL/min (70-130); Calcium 8.5 mg/dL (7.8-10.44); Carbon Dioxide 24 mmol/L (23-31); Chloride 103 mmol/L (98-107); Estimated GFR-MDRD 76; Glucose 118 mg/dL (80-115); Potassium 4.2 mmol/L (3.5-5.1); Sodium 134 mmol/L (136-145)
[2020-09-16] MEDS: Senokot S 8.6-50 MG TAB PO SCH ×2 (08:50→20:49)
[2020-09-16] MEDS: Multivitamin W/ Minerals 1 TAB PO SCH (08:51)
[2020-09-16] MEDS: Ferrous Gluconate 324 MG TAB PO SCH ×2 (08:51→20:51)
[2020-09-16] MEDS: Aspirin 81 mg Enteric Coated Tablet PO SCH ×2 (08:52→20:49)
[2020-09-16] MEDS: HYDROcodone/Acetaminophen 10/325 mg Tablet PO PRN (08:57)
--- NOTE | 2020-09-16 09:21 | PRG ---
DATE OF SERVICE: 09/16/2020 SUBJECTIVE: Ac is a 64-year-old male postop day 1 from a right total knee arthroplasty. He is doing very well. He ambulated yesterday evening approximately 30 feet. His pain is controlled and he is doing relatively well. OBJECTIVE: VITAL SIGNS: Temperature 99, pulse 102, respiratory rate 18, blood pressure is 130/70. GENERAL: He is alert and oriented to person, place, time, and situation. Responsive and appropriate with examiner. EXTREMITIES: Incision is clean. No strike through no erythema and he is neurovascularly intact in the right lower extremity. LABORATORY DATA: Hemoglobin and hematocrit are 12.8 and 38.1. IMPRESSION: 1. Postop day 1 right total knee arthroplasty in a 64-year-old male. 2. Diabetes type 2. PLAN: 1. Continue to manage blood sugars with tight control. 2. Continue to observe for pain control and hemorrhage. 3. Probably expected discharge tomorrow morning or afternoon if he continues to improve. Job ID: [id number]
--- NOTE | 2020-09-16 15:03 | PDOC.HOSPP ---
- Subjective Encounter Date: 09/16/20 Encounter Time: 11:30 Subjective: Patient seen and examined for medical management. Denies any chest pain or shortness of breath. No fever or chills. Pain controlled. - Objective Vital Signs & Weight: Vital Signs (12 hours) Temp Pulse Resp BP BP Pulse Ox 09/16/20 11:47 98.2 F 88 16 105/58 L 92 L 09/16/20 08:52 91 L 09/16/20 07:55 99 F 102 H 18 130/70 91 L 09/16/20 03:35 119/67 09/16/20 03:09 99.3 F 98 18 99/63 92 L Weight Admit Weight 215 lb Weight 215 lb I&O: 09/15/20 09/16/20 09/17/20 06:59 06:59 06:59 Intake Total 1320 Output Total 850 Balance 470 Result Diagrams: 09/16/20 05:43 09/16/20 05:43 Additional Labs: Accuchecks 09/16/20 09/16/20 09/15/20 11:34 05:34 21:20 POC Glucose 162 H 109 H 86 09/15/20 15:38 POC Glucose 111 H Hospitalist ROS - Review of Systems Respiratory: denies: cough, dry, shortness of breath, hemoptysis, SOB with excertion, pleuritic pain, sputum, wheezing, other Cardiovascular: denies: chest pain, palpitations, orthopnea, paroxysmal noc. dyspnea, edema, light headedness, other - Medication Medications: Active Medications Generic Name Dose Route Start Last Admin Trade Name Freq PRN Reason Stop Dose Admin Hydrocodone Bitart/Acetaminophen 2 tab 09/15/20 07:45 09/16/20 08:57 Hydrocodone/Acetaminophen 10/325 Mg Tablet PO 2 tab Q4H PRN Administration PAIN (4-6) Amlodipine Besylate 10 mg 09/15/20 21:00 09/15/20 21:38 Amlodipine 10 Mg Tab PO 10 mg HS JEROD Administration Aspirin 81 mg 09/15/20 09:00 09/16/20 08:52 Aspirin 81 Mg Enteric Coated Tablet PO 81 mg BID JEROD Administration Atorvastatin Calcium 20 mg 09/15/20 21:00 09/15/20 21:39 Atorvastatin Calcium 20 Mg Tab PO 20 mg HS JEROD Administration Ferrous Gluconate 324 mg 09/15/20 09:00 09/16/20 08:51 Ferrous Gluconate 324 Mg Tab PO 324 mg BID JEROD Administration Sodium Chloride 1,000 mls @ 100 mls/hr 09/15/20 07:00 09/16/20 02:49 Normal Saline 0.9% IV Not Given .Q10H JEROD Ropivacaine 250 ml/ Device 250 mls @ 10 mls/hr 09/15/20 07:45 09/16/20 10:28 NERVE BLCK 09/18/20 07:44 250 mls INF JEROD Administration As Directed Insulin Human Lispro 0 units 09/15/20 11:36 09/16/20 11:44 Humalog 300 Units/3 Ml Vial SC 2 units .MODERATE SLIDING SC PRN Administration Moderate Correctional Scale Iron/Minerals/Multivitamins 1 tab 09/15/20 09:00 09/16/20 08:51 Multivitamin W/ Minerals 1 Tab PO 1 tab DAILY JEROD Administration Ketorolac Tromethamine 15 mg 09/15/20 14:00 09/16/20 14:46 Ketorolac Tromethamine 30 Mg/Ml Vial IVP 09/17/20 14:01 15 mg Q8HR JEROD Administration Lisinopril 10 mg 09/15/20 21:00 09/15/20 21:39 Lisinopril 10 Mg Tab PO 10 mg HS JEROD Administration Senna/Docusate Sodium 2 tab 09/15/20 09:00 09/16/20 08:50 Senokot S 8.6-50 Mg Tab PO 2 tab BID JEROD Administration - Exam General Appearance: NAD Heart: RRR, no gallops Respiratory: no wheezes, no ronchi Gastrointestinal: soft, non-tender, normal bowel sounds Extremities: no cyanosis Neurological: no new deficit Hosp A/P - Plan DVT proph w/SCDs Hypertension Hyperlipidemia Diabetes mellitus type 2 CKD stage II Hyponatremia Plan: Continue amlodipine 10 mg nightly with lisinopril 10 mg nightly.. Continue statins. Pain control. Continue physical therapy. Will discontinue sliding scale since blood sugars are stable for last 24 hours. Recent hemoglobin A1c was 6.2
[2020-09-16] MEDS: Lisinopril 10 MG TAB PO SCH (20:50)
[2020-09-16] MEDS: Atorvastatin Calcium 20 MG TAB PO SCH (20:50)
[2020-09-16] MEDS: Amlodipine 10 MG TAB PO SCH (20:51)
[2020-09-17] MEDS: Sodium Chloride 0.9% 1,000 ML IV SCH ×2 (00:06→12:26)
[2020-09-17] MEDS: HYDROcodone/Acetaminophen 10/325 mg Tablet PO PRN ×3 (02:03→12:12)
[2020-09-17] MEDS: Ketorolac Tromethamine 30 MG/ML VIAL IVP SCH (05:23)
[2020-09-17] MEDS: Senokot S 8.6-50 MG TAB PO SCH (08:26)
[2020-09-17] MEDS: Aspirin 81 mg Enteric Coated Tablet PO SCH (08:26)
[2020-09-17] MEDS: Ferrous Gluconate 324 MG TAB PO SCH (08:26)
[2020-09-17] MEDS: Multivitamin W/ Minerals 1 TAB PO SCH (08:26)
[2020-09-17 09:33] VITALS: BP 109/72; TEMP 97.7
--- NOTE | 2020-09-18 12:53 | DIS ---
DATE OF ADMISSION: 09/15/2020 DATE OF DISCHARGE: 09/17/2020 This is Piero Cummings PA-C dictating a report for Power David MD. PREOPERATIVE DIAGNOSIS: Right knee osteoarthritis. POSTOPERATIVE DIAGNOSIS: Right knee osteoarthritis. PROCEDURE PERFORMED: The patient underwent a right total knee replacement. HOSPITAL STAY: Unremarkable. The patient was admitted to [address], where they worked with staff, Physical Therapy, Occupational Therapy, and progressed quite well. By postop day #2, they were ready to discharge him home. DISCHARGE CONDITION: Good/stable. DISPOSITION: Home with family. FOLLOWUP: Would be in 2 to 4 weeks or sooner if there are problems and/or concerns. DISCHARGE MEDICATIONS: Given with usage instructions. Job ID: [id number]
== END 2020-09-17 12:48 | disposition home or self-care (01) | DRG 470 ==
LOC: SURG A 09-15 05:29 → SURG B 09-15 10:32
PROVIDERS: ADMIT Orthopaedic Surgery; ATTEND Orthopaedic Surgery
PROC: 0SRC0J9 Replacement of Right Knee Joint with Synthetic Substitute, Cemented, Open Approach (ICD-10-PCS; principal; 2020-09-15)
DX: M17.11 Unilateral primary osteoarthritis, right knee (principal); E87.1 Hypo-osmolality and hyponatremia; Z96.652 Presence of left artificial knee joint; I12.9 Hypertensive chronic kidney disease with stage 1 through stage 4 chronic kidney disease, or unspecified chronic kidney disease; E11.22 Type 2 diabetes mellitus with diabetic chronic kidney disease; N18.2 Chronic kidney disease, stage 2 (mild); Z20.828 Contact with and (suspected) exposure to other viral communicable diseases; E78.5 Hyperlipidemia, unspecified; E66.9 Obesity, unspecified; Z93.3 Colostomy status; Z90.49 Acquired absence of other specified parts of digestive tract; Z79.84 Long term (current) use of oral hypoglycemic drugs; Z79.899 Other long term (current) drug therapy; Z68.28 Body mass index [BMI] 28.0-28.9, adult
CPT/HCPCS: 36415; 36416; 80048; C1713; C1776; J0690; J1885; J2250; J2405; J2704; J2795; J3010; J3370; J3490; S0020

== ENCOUNTER 2022-05-16 10:30 | Outpatient (CLI) | payer MEDICARE, BC ==
[2022-05-16 11:32] LABS: #Eosinphils 0.3 10x3/uL (0.0-0.5); #Monocytes 1.1 10x3/uL (0.0-1.1); #Neutrophils 4.3 10x3/uL (1.5-8.4); %Basophils 0.6 % (0.0-2.0); %Eosinophils 3.7 % (0.0-6.0); %Lymphocytes 21.3 % (18.0-47.0); %Monocytes 14.5 % (0.0-10.0); %Neutrophils 58.9 % (40.0-75.0); Hemoglobin 16.2 g/dL (13.5-17.5); Mean Corpuscular HGB CONC 34.9 g/dL (32.0-36.0); Mean Corpuscular Hemoglobin 31.7 pg (27.0-33.0); Mean Corpuscular Volume 90.8 fl (81.2-95.1); Mean Platelet Volume 9.1 fl (7.4-10.4); Platelet Count 294 10x3/uL (150-450); RBC Distribution Width 11.9 % (11.5-14.5); Red Blood Cell (RBC) Count 5.11 10x6/uL (4.32-5.72); White Blood Cell (WBC) Count 7.2 10x3/uL (3.5-10.5)
[2022-05-16 11:38] LABS: INR-International Normal Ratio 0.9
[2022-05-16 11:39] LABS: Anion Gap 15 mmol/L (10-20); BUN (Urea Nitrogen) 24 mg/dL (8.4-25.7); Calc. Creatinine Clearance 0 mL/min (70-130); Calcium 9.5 mg/dL (7.8-10.44); Carbon Dioxide 24 mmol/L (23-31); Chloride 103 mmol/L (98-107); Estimated GFR 81; Glucose 132 mg/dL (80-115); Potassium 4.5 mmol/L (3.5-5.1); Sodium 137 mmol/L (136-145)
== END 2022-05-16 10:31 | disposition home or self-care (01) ==
LOC: LABBT 10:30
PROVIDERS: ATTEND Orthopaedic Surgery
DX: Z01.818 Encounter for other preprocedural examination (principal); M16.12 Unilateral primary osteoarthritis, left hip; Z20.822 Contact with and (suspected) exposure to COVID-19
CPT/HCPCS: 80048; 85025; 85610; 87081; 87811; 93005; 93010

== ENCOUNTER 2022-05-19 05:35 | Observation (INO) | payer MEDICARE, BC ==
[2022-05-17 14:23] VITALS: BMI 31.8
[2022-05-19] MEDS ORDERED: CEFAZOLIN 2 GM VIAL ONE (05:55)
[2022-05-19] MEDS ORDERED: Sodium Chloride 0.9% 100 ML ONE ×2 (05:55→05:56)
[2022-05-19] MEDS ORDERED: Tranexamic Acid 1,000 MG/10 ML VIAL ONE (05:55)
[2022-05-19] MEDS ORDERED: Vancomycin (BATCH) 1.5 GRAM/300 ML BAG ONE (05:56)
[2022-05-19] MEDS ORDERED: Bupivacaine PF 0.5% 30 ML VIAL ONE (06:41)
[2022-05-19] MEDS ORDERED: Zolpidem Tartrate 5 MG TAB PO PRN (06:50)
[2022-05-19] MEDS ORDERED: Acetaminophen 325 MG TAB PO PRN (06:50)
[2022-05-19] MEDS ORDERED: Promethazine HCl 25 MG/ML VIAL IM PRN ×2 (06:50→09:08)
[2022-05-19] MEDS ORDERED: HYDROcodone/Acetaminophen 10/325 mg Tablet PO PRN (06:50)
[2022-05-19] MEDS ORDERED: Ondansetron PF 4 MG/2 ML Vial IVP PRN (06:50)
[2022-05-19] MEDS ORDERED: Fentanyl 100 MCG/2 ML VIAL SLOW IVP PRN ×2 (06:50)
[2022-05-19] MEDS ORDERED: diphenhydrAMINE 25 MG CAP PO PRN (06:50)
[2022-05-19] MEDS ORDERED: Bupivacaine HCl 0.5%/Epinephrine 1:200,000/PF 30 ml Vial ONE (07:00)
[2022-05-19] MEDS ORDERED: Propofol 500 MG/50 ML VIAL ONE ×2 (07:10→08:15)
[2022-05-19] MEDS ORDERED: Lidocaine 1% PF 5 ML VIAL ONE (07:13)
[2022-05-19] MEDS ORDERED: Ondansetron PF 4 MG/2 ML Vial ONE (07:13)
[2022-05-19] MEDS ORDERED: Phenylephrine 10 MG/ML VIAL ONE (07:13)
[2022-05-19] MEDS ORDERED: Ondansetron HCl/PF 4 MG/2 ML Vial IVP PRN (09:08)
[2022-05-19] MEDS ORDERED: Promethazine HCl 25 MG/ML VIAL IVPB PRN (09:08)
[2022-05-19] MEDS: Alogliptin 25 MG TAB PO SCH (13:22)
[2022-05-19] MEDS: Empagliflozin 25 MG TAB PO SCH (13:22)
[2022-05-19] MEDS: Aspirin 81 mg Enteric Coated Tablet PO SCH ×2 (13:22→22:11)
[2022-05-19] MEDS: Sodium Chloride 0.9% 1,000 ML IV SCH ×2 (13:22→16:18)
[2022-05-19] MEDS: metFORMIN 500 MG TAB PO SCH ×2 (13:22→16:23)
[2022-05-19] MEDS: Pioglitazone HCl 15 MG TAB PO SCH (13:23)
[2022-05-19] MEDS: Ketorolac Tromethamine 30 MG/ML VIAL IVP SCH ×2 (13:50→22:12)
[2022-05-19] MEDS: CEFAZOLIN 2 GM in Sodium Chloride 0.9% 100 ML IVPB SCH ×2 (13:51→22:09)
[2022-05-19] MEDS: HYDROcodone/Acetaminophen 10/325 mg Tablet PO PRN (14:02)
[2022-05-19] MEDS ORDERED: HumaLOG 300 UNITS/3 ML VIAL SC PRN ×2 (18:18)
[2022-05-19] MEDS ORDERED: Dextrose 5% in Water 1,000 ML IV PRN (18:18)
[2022-05-19] MEDS ORDERED: hydrALAZINE 20 MG/ML VIAL SLOW IVP PRN (18:18)
[2022-05-19] MEDS ORDERED: Dextrose 50% Abboject 50 ML SYRINGE SLOW IVP PRN (18:18)
[2022-05-19] MEDS ORDERED: Lisinopril 10 MG TAB PO SCH (21:00)
[2022-05-19] MEDS ORDERED: Atorvastatin Calcium 20 MG TAB PO SCH (21:00)
[2022-05-19] MEDS ORDERED: Amlodipine 10 MG TAB PO SCH (21:00)
[2022-05-20 05:18] LABS: Hemoglobin 15.4 g/dL (14.0-18.0); Mean Corpuscular HGB CONC 32.9 g/dL (32.0-36.0); Mean Corpuscular Hemoglobin 32.8 pg (27.0-31.0); Mean Corpuscular Volume 99.5 fL (78.0-98.0); Mean Platelet Volume 6.6 fL (7.4-10.4); Platelet Count 231 thou/uL (130-400); RBC Distribution Width 11.5 % (11.5-14.5); Red Blood Cell (RBC) Count 4.69 mill/uL (4.70-6.10); White Blood Cell (WBC) Count 9.9 thou/uL (4.8-10.8)
[2022-05-20] MEDS: Ketorolac Tromethamine 30 MG/ML VIAL IVP SCH (06:00)
[2022-05-20] MEDS: Sodium Chloride 0.9% 1,000 ML IV SCH (06:01)
[2022-05-20] MEDS ORDERED: Ferrous Gluconate 324 MG TAB PO SCH (08:00)
[2022-05-20] MEDS ORDERED: Senokot S 8.6-50 MG TAB PO SCH (09:00)
[2022-05-20] MEDS ORDERED: Multivitamin W/ Minerals 1 TAB PO SCH (09:00)
[2022-05-20] MEDS: HYDROcodone/Acetaminophen 10/325 mg Tablet PO PRN (09:01)
[2022-05-20] MEDS: Alogliptin 25 MG TAB PO SCH (09:02)
[2022-05-20] MEDS: metFORMIN 500 MG TAB PO SCH (09:02)
[2022-05-20] MEDS: Empagliflozin 25 MG TAB PO SCH (09:03)
[2022-05-20] MEDS: Aspirin 81 mg Enteric Coated Tablet PO SCH (09:03)
[2022-05-20] MEDS: Pioglitazone HCl 15 MG TAB PO SCH (09:05)
[2022-05-20 11:25] VITALS: BP 102/66; TEMP 98.5
== END 2022-05-20 12:45 | disposition home health service (06) ==
LOC: SDC 05:35 → SURG B 06:50 → SDC 05-20 05:01 → SURG B 05-20 05:02
PROVIDERS: ADMIT Orthopaedic Surgery; ATTEND Orthopaedic Surgery
PROC: 0SRB04A Replacement of Left Hip Joint with Ceramic on Polyethylene Synthetic Substitute, Uncemented, Open Approach (ICD-10-PCS; principal; 2022-05-19)
PROC: 3E0T3BZ Introduction of Anesthetic Agent into Peripheral Nerves and Plexi, Percutaneous Approach (ICD-10-PCS; 2022-05-19)
DX: M16.0 Bilateral primary osteoarthritis of hip (principal); I12.9 Hypertensive chronic kidney disease with stage 1 through stage 4 chronic kidney disease, or unspecified chronic kidney disease; E11.22 Type 2 diabetes mellitus with diabetic chronic kidney disease; N18.30 Chronic kidney disease, stage 3 unspecified; E78.5 Hyperlipidemia, unspecified; Z79.84 Long term (current) use of oral hypoglycemic drugs; Z79.899 Other long term (current) drug therapy; Z96.653 Presence of artificial knee joint, bilateral; Z90.49 Acquired absence of other specified parts of digestive tract
CPT/HCPCS: 27130; 73502; 82962 ×2; 85027; 96365; 96375; 96376 ×2; 97110; 97116; 97535; C1776; G0378 ×2; J3370; 36415; 36416; J0690; J1885; J2370; J2405; J2704; J3010; J3490; S0020

== ENCOUNTER 2022-08-25 11:34 | Outpatient (CLI) | payer MEDICARE, BC ==
[2022-08-25 13:57] LABS: #Basophils 0.1 10x3/uL (0.0-0.2); #Eosinphils 0.2 10x3/uL (0.0-0.5); #Monocytes 0.9 10x3/uL (0.0-1.1); #Neutrophils 4.8 10x3/uL (1.5-8.4); %Basophils 0.7 % (0.0-2.0); %Lymphocytes 14.2 % (18.0-47.0); %Monocytes 12.8 % (0.0-10.0); %Neutrophils 68.6 % (40.0-75.0); Mean Corpuscular HGB CONC 34.5 g/dL (32.0-36.0); Mean Corpuscular Hemoglobin 31.6 pg (27.0-33.0); Mean Corpuscular Volume 91.7 fl (81.2-95.1); Mean Platelet Volume 9.3 fl (7.4-10.4); Platelet Count 329 10x3/uL (150-450); Red Blood Cell (RBC) Count 5.06 10x6/uL (4.32-5.72)
[2022-08-25 14:13] LABS: Anion Gap 16 mmol/L (10-20); BUN (Urea Nitrogen) 20 mg/dL (8.4-25.7); Calc. Creatinine Clearance 0 mL/min (70-130); Calcium 9.9 mg/dL (7.8-10.44); Carbon Dioxide 26 mmol/L (23-31); Chloride 103 mmol/L (98-107); Estimated GFR 74; Glucose 191 mg/dL (80-115); INR-International Normal Ratio 0.9; Prothrombin Time 10.2 sec (9.5-12.1); Sodium 140 mmol/L (136-145)
== END 2022-08-25 11:35 | disposition home or self-care (01) ==
LOC: LABBT 11:34
PROVIDERS: ATTEND Orthopaedic Surgery
DX: Z01.818 Encounter for other preprocedural examination (principal); M16.11 Unilateral primary osteoarthritis, right hip
CPT/HCPCS: 80048; 85025; 85610; 87081; 93005; 93010

== ENCOUNTER 2022-08-30 05:40 | Observation (INO) | payer MEDICARE, BC ==
[2022-08-29 12:59] VITALS: BMI 32.5
[2022-08-30] MEDS ORDERED: Sodium Chloride 0.9% 100 ML ONE ×2 (05:54→06:58)
[2022-08-30] MEDS ORDERED: Vancomycin (BATCH) 1.5 GRAM/300 ML BAG ONE (05:54)
[2022-08-30] MEDS ORDERED: Tranexamic Acid 1,000 MG/10 ML VIAL ONE (05:54)
[2022-08-30] MEDS ORDERED: fentaNYL Citrate/PF 100 MCG/2 ML SYRINGE ONE (06:06)
[2022-08-30] MEDS ORDERED: Dexmedetomidine 200 MCG/2 ML VIAL ONE (06:07)
[2022-08-30] MEDS ORDERED: Midazolam HCl 2 mg/2 ml Vial ONE (06:13)
[2022-08-30] MEDS ORDERED: PHENYLEPHRINE-NS 100 MCG/ML 10 ML SYRINGE ONE (06:40)
[2022-08-30] MEDS ORDERED: Ondansetron PF 4 MG/2 ML Vial ONE (06:40)
[2022-08-30] MEDS ORDERED: Bupivacaine HCl 0.5%/Epinephrine 1:200,000/PF 30 ml Vial ONE (06:40)
[2022-08-30] MEDS ORDERED: Glycopyrrolate 0.2 MG/ML 5 ML SYRINGE ONE (06:40)
[2022-08-30] MEDS ORDERED: Dexamethasone 20 MG/5 ML VIAL ONE (06:40)
[2022-08-30] MEDS ORDERED: ePHEDrine 50 MG/ML VIAL ONE (06:40)
[2022-08-30] MEDS ORDERED: Bupivacaine PF 0.5% 30 ML VIAL ONE ×2 (06:45→10:53)
[2022-08-30] MEDS ORDERED: Zolpidem Tartrate 5 MG TAB PO PRN (06:47)
[2022-08-30] MEDS ORDERED: Acetaminophen 325 MG TAB PO PRN (06:47)
[2022-08-30] MEDS ORDERED: Ondansetron PF 4 MG/2 ML Vial IVP PRN (06:47)
[2022-08-30] MEDS ORDERED: Promethazine HCl 25 MG/ML VIAL IM PRN (06:47)
[2022-08-30] MEDS ORDERED: diphenhydrAMINE 25 MG CAP PO PRN (06:47)
[2022-08-30] MEDS ORDERED: HYDROcodone/Acetaminophen 10/325 mg Tablet PO PRN (06:47)
[2022-08-30 06:50] LABS: SARS-CoV-2 NAA Rapid Test Not Detected (NotDetected)
[2022-08-30] MEDS ORDERED: FENTANYL 50 MCG/ML VIAL 50 MCG/ML VIAL SLOW IVP PRN (06:57)
[2022-08-30] MEDS ORDERED: CEFAZOLIN 2 GM VIAL ONE (06:58)
[2022-08-30] MEDS ORDERED: Ropivacaine 0.5% HCl/PF (150 MG/30 ML VIAL) ONE (08:34)
[2022-08-30] MEDS ORDERED: Aspirin 81 mg Enteric Coated Tablet PO SCH (09:00)
[2022-08-30] MEDS ORDERED: Non-Formulary Item 1 EACH (Pioglitazone Hcl [Pioglitazone Hcl] 30 MG Tablet) PO SCH (09:00)
[2022-08-30] MEDS: metFORMIN 500 MG TAB PO SCH ×2 (10:31→18:33)
[2022-08-30] MEDS: Alogliptin 25 MG TAB PO SCH (10:31)
[2022-08-30] MEDS: Sodium Chloride 0.9% 1,000 ML IV SCH ×2 (10:31→18:26)
[2022-08-30] MEDS: Senokot S 8.6-50 MG TAB PO SCH ×2 (10:32→21:41)
[2022-08-30] MEDS: Empagliflozin 25 MG TAB PO SCH (10:32)
[2022-08-30] MEDS: Aspirin 81 mg Enteric Coated Tablet PO SCH ×2 (10:32→21:41)
[2022-08-30] MEDS: Pioglitazone HCl 15 MG TAB PO SCH (10:32)
[2022-08-30] MEDS: Multivitamin W/ Minerals 1 TAB PO SCH (10:32)
[2022-08-30] MEDS: Ferrous Gluconate 324 MG TAB PO SCH ×2 (10:32→21:42)
[2022-08-30] MEDS: Ketorolac Tromethamine 30 MG/ML VIAL IVP SCH ×2 (12:17→21:48)
[2022-08-30] MEDS: CEFAZOLIN 2 GM in Sodium Chloride 0.9% 100 ML IVPB SCH ×2 (14:01→21:37)
[2022-08-30] MEDS: HYDROcodone/Acetaminophen 10/325 mg Tablet PO PRN ×2 (14:36→21:42)
[2022-08-30] MEDS ORDERED: Atorvastatin Calcium 20 MG TAB PO SCH (21:00)
[2022-08-30] MEDS ORDERED: Amlodipine 10 MG TAB PO SCH (21:00)
[2022-08-30] MEDS ORDERED: Lisinopril 10 MG TAB PO SCH (21:00)
[2022-08-31] MEDS: Sodium Chloride 0.9% 1,000 ML IV SCH (01:51)
[2022-08-31] MEDS: Ketorolac Tromethamine 30 MG/ML VIAL IVP SCH (05:04)
[2022-08-31 06:02] LABS: Hemoglobin 13.2 g/dL (14.0-18.0); Mean Corpuscular HGB CONC 32.8 g/dL (32.0-36.0); Mean Corpuscular Hemoglobin 31.9 pg (27.0-31.0); Mean Corpuscular Volume 97.2 fl (78.0-98.0); Mean Platelet Volume 7.1 fL (7.4-10.4); Platelet Count 245 thou/uL (130-400); RBC Distribution Width 12.1 % (11.5-14.5); Red Blood Cell (RBC) Count 4.13 mill/uL (4.70-6.10); White Blood Cell (WBC) Count 11.5 thou/uL (4.8-10.8)
[2022-08-31] MEDS: Pioglitazone HCl 15 MG TAB PO SCH (08:26)
[2022-08-31] MEDS: Ferrous Gluconate 324 MG TAB PO SCH (08:27)
[2022-08-31] MEDS: Aspirin 81 mg Enteric Coated Tablet PO SCH (08:27)
[2022-08-31] MEDS: metFORMIN 500 MG TAB PO SCH (08:27)
[2022-08-31] MEDS: Empagliflozin 25 MG TAB PO SCH (08:27)
[2022-08-31] MEDS: Alogliptin 25 MG TAB PO SCH (08:27)
[2022-08-31] MEDS: Multivitamin W/ Minerals 1 TAB PO SCH (08:27)
[2022-08-31] MEDS: Senokot S 8.6-50 MG TAB PO SCH (08:29)
[2022-08-31] MEDS: HYDROcodone/Acetaminophen 10/325 mg Tablet PO PRN (08:31)
[2022-08-31] MEDS ORDERED: FLU VACC QS2022-23(65YR UP)/PF 240 MCG/0.7 ML SYRINGE IM ONE (09:00)
[2022-08-31 10:08] VITALS: BP 152/83; TEMP 97.3
== END 2022-08-31 11:00 | disposition home or self-care (01) ==
LOC: SDC 05:40 → SURG A 10:16 → SDC 11:08
PROVIDERS: ADMIT Orthopaedic Surgery; ATTEND Orthopaedic Surgery
PROC: 0SR904A Replacement of Right Hip Joint with Ceramic on Polyethylene Synthetic Substitute, Uncemented, Open Approach (ICD-10-PCS; principal; 2022-08-30)
DX: M16.11 Unilateral primary osteoarthritis, right hip (principal); I10 Essential (primary) hypertension; E11.9 Type 2 diabetes mellitus without complications; Z79.82 Long term (current) use of aspirin; Z79.84 Long term (current) use of oral hypoglycemic drugs; Z79.899 Other long term (current) drug therapy; Z90.49 Acquired absence of other specified parts of digestive tract; Z96.642 Presence of left artificial hip joint; Z96.653 Presence of artificial knee joint, bilateral; Z20.822 Contact with and (suspected) exposure to COVID-19
CPT/HCPCS: 27130; 73502; 85027; 85610; 97110; 97116 ×2; 97530 ×2; 97535; C1713; J3370; U0002; 36415; C1776; J1100; J1885; J2250; J2405; J2795; J3490; S0020